=== PATIENT | female | born 1945 | race Caucasian/White ===

== ENCOUNTER 2020-12-27 11:33 | Outpatient (REF) | payer MEDICARE, SELFPAY ==
[2020-12-27 14:01] LABS: Hematocrit 39.9 % (37-47); Hemoglobin 13.4 g/dl (12.0-16.0); Mean Corpuscular HGB Conc 33.6 g/dl (31.0-35.0); Mean Corpuscular Hemoglobin 30.9 pg (27.0-33.0); Mean Corpuscular Volume 91.9 fL (80-98); Mean Platelet Volume 10.9 fL (9.4-12.3); Platelet Count 265 X10*3/uL (160-400); Red Blood Count 4.34 X10*6/uL (4.20-5.50); Red Cell Distribution Width 12.4 % (11.0-16.0); White Blood Count 9.2 X10*3/uL (4.8-10.8)
[2020-12-27 14:50] LABS: Alanine Aminotransferase 21 U/L (0-31); Albumin Level 4.6 g/dL (3.5-5.0); Alkaline Phosphatase 71 U/L (39-117); Anion Gap 15 (12-20); Aspartate Amino Transferase 16 U/L (5-31); Bilirubin Total 1.5 mg/dL (0.0-1.0); Blood Urea Nitrogen 21 mg/dL (9-16); Carbon Dioxide 26 mmol/L (22-29); Chloride 103 mmol/L (96-108); Cholesterol 201 mg/dL; Estimated Glomerular Filt Rate 58; Glucose Fasting 100 mg/dL (60-99); HDL Cholesterol 45 mg/dL; LDL Cholesterol Calculated 128 mg/dl; Potassium 4.3 mmol/L (3.3-5.1); Sodium 140 mmol/L (135-145); Total Protein 7.6 g/dL (6.5-8.0); Triglycerides 141 mg/dL
[2020-12-27 14:56] LABS: TSH reflex Free T4 2.31 uIU/mL (0.32-4.0)
== END 2020-12-27 11:34 | disposition home or self-care (01) ==
LOC: HO.HMGCLDS 11:33
PROVIDERS: PCP Internal Medicine; Visit Provider Internal Medicine
DX: E78.5 Hyperlipidemia, unspecified (principal); I10 Essential (primary) hypertension
CPT/HCPCS: 36415; 80053; 80061; 84443; 85027

== ENCOUNTER 2021-07-04 09:45 | Outpatient (REF) | payer MEDICARE, SELFPAY ==
[2021-07-04 12:04] LABS: Anion Gap 14 (12-20); Blood Urea Nitrogen 16 mg/dL (9-16); Calcium 9.5 mg/dL (8.4-10.2); Carbon Dioxide 25 mmol/L (22-29); Chloride 105 mmol/L (96-108); Estimated Glomerular Filt Rate 54; Glucose Fasting 105 mg/dL (60-99); Potassium 4.1 mmol/L (3.3-5.1); Sodium 140 mmol/L (135-145)
== END 2021-07-04 09:46 | disposition home or self-care (01) ==
LOC: HO.HMGCLDS 09:45
PROVIDERS: PCP Internal Medicine; Visit Provider Internal Medicine
DX: E78.5 Hyperlipidemia, unspecified (principal); I10 Essential (primary) hypertension
CPT/HCPCS: 36415; 80048

== ENCOUNTER 2021-07-15 12:59 | Inpatient (IN) | payer MEDICARE, SELFPAY ==
[2021-07-15] VITALS (15 sets, daily range): BP systolic 88–156; BP diastolic 60–106; PULSE 65–137; RESP 14–24; TEMP 36.8–36.9; O2SAT 94–96; BMI 32.1; BMI 32.8
--- NOTE | 2021-07-15 | ECG_ITS ---
Test Reason : RAPID HEART RATE Blood Pressure : / mmHG Vent. Rate : 134 BPM Atrial Rate : 134 BPM P-R Int : 120 ms QRS Dur : 126 ms QT Int : 346 ms P-R-T Axes : 000 -38 107 degrees QTc Int : 516 ms Sinus tachycardia Left anterior fascicular block Left ventricular hypertrophy with QRS widening and repolarization abnormality ( R in aVL , [place] product ) Abnormal ECG No previous ECGs available Referred By: Generic ED Physician Electronically Signed By:DOUG SILVER MD
--- NOTE | ~2021-07-15 | XR_ITS ---
EXAMINATION: XR CHEST CLINICAL INFORMATION: Supraventricular tachycardia. COMPARISON: None TECHNIQUE: Portable upright AP view of the chest was obtained. FINDINGS: The lungs are clear. The vascularity is normal. The heart is normal in size. There is no vascular congestion, airspace consolidation, or effusion. The hilar and mediastinal contours and visualized bony structures are unremarkable. XR/XR chest 1V IMPRESSION: Unremarkable examination.
--- NOTE | 2021-07-15 13:36 | ED_ITS ---
HPI - Arrhythmia/Palpitations General Chief Complaint: Arrhythmia/Palpitations Stated Complaint: heart arrhythmia Time Seen by Provider: 07/15/21 13:33 Source: patient and family Limitations: language barrier (Son translating) History of Present Illness HPI narrative: This is a 75-year-old female who has history of hypertension and has noted her heart rate has been fast for a few days, when she has been monitoring her blood pressure. She denies any other symptoms. She has not had any dizziness, chest pain, shortness of breath, abdominal pain. She has no prior history of arrhythmia or heart problems. She denies any swelling to her extremities. She denies any history of thyroid problems. Related Data Previous Rx's Medication Instructions Recorded irbesartan 300 mg tablet 300 mg PO DAILY #90 tab 08/12/20 metoprolol tartrate 25 mg tablet 25 mg PO BID #180 tab 08/12/20 triamterene 37.5 1 cap PO DAILY #90 cap 08/12/20 mg-hydrochlorothiazide 25 mg capsule Allergies Allergy/AdvReac Type Severity Reaction Status Date / Time No Known Allergies Allergy Verified 07/15/21 13:02 Review of Systems Review of Systems: Yes all other systems are reviewed and are negative Constitutional: Constitutional: Reports as per HPI Eyes: Eyes: Reports as per HPI and Reports no additional eye complaints ENT: Reports system reviewed and no additional complaints, except as documented, Reports as per HPI, Denies nasal congestion, Denies nasal discharge and Denies sore throat Cardiovascular: Cardiovascular: Reports as per HPI, Denies chest pain and Denies dyspnea Respiratory: Respiratory: Reports as per HPI, Denies cough and Denies dyspnea Gastrointestinal: Gastrointestinal: Reports as per HPI, Denies abdominal pain, Denies diarrhea and Denies vomiting Genitourinary: Genitourinary: Reports as per HPI, Denies hematuria, Denies urinary frequency and Denies dysuria Musculoskeletal: Musculoskeletal: Reports no additional musculoskeletal complaints and Denies numbness Integumentary/Breasts: Skin/Breast: Reports as per HPI and Denies rash Neurologic: Reports as per HPI, Denies focal weakness, Denies numbness and Denies Sensory deficit (Neuro) Psychiatric: Psychiatric: Reports no additional psychiatric complaints and Reports as per HPI Endocrine: Endocrine: Reports no additional endocrine complaints and Reports as per HPI Hematologic/Lymphatic: Hematologic/Lymphatic: Reports no additional hem atologic/lymphatic complaints, Reports as per HPI and Reports other (No peripheral edema) [facility] Past Medical History Medical History H/O bone density study Hyperlipidemia Hypertension Osteoarthritis of right knee Tachycardia Surgical History H/O colonoscopy Family History Family History (Updated 07/15/21 @ 16:01 by Kevin Eason MD) Other HTN (hypertension) Social History Social History Patient Tobacco Use Status: Never used Tobacco e-Cigarette/Vaping Use: Never Used Advance Directives: No Advance Directives Information Provided: No Current occupational status: retired Physical Exam Vital Signs: Vital Signs: Last Vital Signs Temp 98.2 F 07/15/21 13:02 Pulse 82 07/15/21 14:59 Resp 18 07/15/21 14:59 BP 109/80 07/15/21 14:59 Pulse Ox 94 07/15/21 14:40 Body Mass Index 32.1 Const: General: cooperative, no acute distress and alert Orientation/consciousness: patient oriented x3 HENMT: Head: Yes normal to inspection Eyes: General: appearance normal, both eyes and all related structures Eyelids: Yes eyelids normal Conjunctivae: conjunctivae normal Pupils: Equal, round and reactive pupils present Neck: Neck: Yes normal visual inspection and Yes supple Chest: Chest palpation & inspection: normal inspection of the chest Resp: Effort & Inspection: normal respiratory effort Auscultation: clear to auscultation bilaterally Cardio: Rate: tachycardic Rhythm: regular rhythm Heart sounds: S1 normal heart sound present, S2 normal heart sound present, no gallops, no murmurs and no rubs GI: Palpation (GI): Soft to palpation, nontender and Other GI palpation findings present (Non-distended) Auscultation: normal bowel sounds Skin: General skin exam: no rashes or lesions noted Neuro: General: patient oriented x3, no focal motor deficits and CN's II-XI intact bilaterally Cranial nerves: Yes Equal, round and reactive pupils present Cognition (Neuro): normal cognition Motor exam (neuro): 5/5 motor strength present throughout Sensory Exam: No Sensory deficit (Neuro) Extrem: General: Yes normal to inspection and Yes no pedal edema Psych: Appearance: grossly normal Affect: normal affect MDM - Arrhythmia/Palpitations MDM Narrative Medical decision making narrative: Patient presents with tachycardia noted 2 days ago. Patient denied any other symptoms such as chest pain, dizziness, shortness of breath, extremity swelling. Patient denied any history of cardiac disease. Initial EKG showed a supraventricular tachycardia with a rate of around 132, and it did not see to wake her from that rate. This suggested either SVT or atrial flutter. Patient was given adenosine IV, 6 mg which broke the rhythm briefly but did not allow the determination as to whether there was atrial flutter, and then 12 mg IV which did cause pause in the ventricular beats such that P waves could be seen consistent with atrial flutter. Patient was given Cardizem 20 mg IV bolus and then started on drip per protocol. The patient subsequently had a heart rate in the 70s and blood pressure that felt the 80s Cardizem was temporarily discontinued. Repeat EKG did show the patient was still in atrial flutter. This was a 15 10. Patient's troponin is somewhat elevated, likely due to sustained increased rate. Patient is being admitted to the hospitalist service, Dr. Danny oconnor. Second EKG done at 15:10 shows atrial flutter, with irregular conduction ratio suggesting a component of atrial fibrillation, overall rate of 89. No acute ST or T-wave changes noted compared to prior. Lab Data Attestation: I reviewed the patient's lab results. Result diagrams: 07/15/21 13:48 07/15/21 13:48 Labs: Lab Results 07/15/21 07/15/21 07/15/21 Range/Units 13:48 13:48 13:48 WBC 10.3 (4.8-10.8) X10*3/uL RBC 4.45 (4.20-5.50) X10*6/uL Hgb 13.7 (12.0-16.0) g/dl Hct 40.0 (37.0-47.0) % MCV 89.9 (80.0-98.0) fL MCH 30.8 (27.0-33.0) pg MCHC 34.3 (31.0-35.0) g/dl RDW 13.0 (11.0-16.0) % Plt Count 274 (160-400) X10*3/uL MPV 10.2 (9.4-12.3) fL Immature Gran % (Auto) 0.3 (0.0-0.4) % Neut % (Auto) 75.4 H (45-73) % Lymph % (Auto) 18.0 L (20-40) % Jenkins % (Auto) 4.9 (2-11) % Eos % (Auto) 1.2 (0-4) % Baso % (Auto) 0.2 (0-2) % Lymph # (Auto) 1.9 (1.2-4.9) X10*3/uL Jenkins # (Auto) 0.5 (0.1-1.2) X10*3/uL Eos # (Auto) 0.1 (0.0-0.4) X10*3/uL Baso # (Auto) 0.0 (0.0-0.2) X10*3/uL Abs Immat Gran (auto) 0.03 (0.00-0.03) X10*3/uL Absolute Neuts (auto) 7.8 (2.0-8.3) x10*3/uL Absolute Nucleated RBC 0.000 (0.0-0.012) X10*3/uL Nucleated RBC % (auto) 0.0 (0.0-0.2) /100WBC Sodium 136 (135-145) mmol/L Potassium 3.5 (3.3-5.1) mmol/L Chloride 103 (96-108) mmol/L Carbon Dioxide 21 L (22-29) mmol/L Anion Gap 16 (12-20) BUN 13 (9-16) mg/dL Creatinine 0.97 (0.5-1.4) mg/dL Estim Creat Clear Calc 47.8 Estimated GFR 56 Random Glucose 180 H (60-115) mg/dL Calcium 9.4 (8.4-10.2) mg/dL Total Bilirubin 1.8 H (0.0-1.0) mg/dL AST 20 (5-31) U/L ALT 23 (0-31) U/L Alkaline Phosphatase 60 (39-117) U/L Troponin I High Sens 110.1 H* (<3.5-17.0) ng/L Total Protein 7.2 (6.5-8.0) g/dL Albumin 4.2 (3.5-5.0) g/dL COVID-19 (KATHI) (Negative) COVID-19 Clin Com 07/15/21 Range/Units 14:43 WBC (4.8-10.8) X10*3/uL RBC (4.20-5.50) X10*6/uL Hgb (12.0-16.0) g/dl Hct (37.0-47.0) % MCV (80.0-98.0) fL MCH (27.0-33.0) pg MCHC (31.0-35.0) g/dl RDW (11.0-16.0) % Plt Count (160-400) X10*3/uL MPV (9.4-12.3) fL Immature Gran % (Auto) (0.0-0.4) % Neut % (Auto) (45-73) % Lymph % (Auto) (20-40) % Jenkins % (Auto) (2-11) % Eos % (Auto) (0-4) % Baso % (Auto) (0-2) % Lymph # (Auto) (1.2-4.9) X10*3/uL Jenkins # (Auto) (0.1-1.2) X10*3/uL Eos # (Auto) (0.0-0.4) X10*3/uL Baso # (Auto) (0.0-0.2) X10*3/uL Abs Immat Gran (auto) (0.00-0.03) X10*3/uL Absolute Neuts (auto) (2.0-8.3) x10*3/uL Absolute Nucleated RBC (0.0-0.012) X10*3/uL Nucleated RBC % (auto) (0.0-0.2) /100WBC Sodium (135-145) mmol/L Potassium (3.3-5.1) mmol/L Chloride (96-108) mmol/L Carbon Dioxide (22-29) mmol/L Anion Gap (12-20) BUN (9-16) mg/dL Creatinine (0.5-1.4) mg/dL Estim Creat Clear Calc Estimated GFR Random Glucose (60-115) mg/dL Calcium (8.4-10.2) mg/dL Total Bilirubin (0.0-1.0) mg/dL AST (5-31) U/L ALT (0-31) U/L Alkaline Phosphatase (39-117) U/L Troponin I High Sens (<3.5-17.0) ng/L Total Protein (6.5-8.0) g/dL Albumin (3.5-5.0) g/dL COVID-19 (KATHI) Negative (Negative) COVID-19 Clin Com See Note Imaging Data Chest x-ray: Radiologist's impression: No acute pathology ECG Data Attestation: I personally reviewed and interpreted this ECG as follows: ECG interpretation date: 07/15/21 ECG interpretation time: 13:39 Interpretation: Supraventricular tachycardia with a rate of 134. Poor R-wave progression. LVH with T-wave changes in leads 1 and L. Critical Care Time Critical Care Time Critical Care Time: Yes Total Critical Care Time: 40 Attestation: Critical care time for this life-threatening illness exclusive of all other billable procedures was approximately 40 minutes including initial evaluation of the patient, ordering tests, x-ray interpretation, EKG interpretation, medical consultation, documentation, reevaluation. Discharge Plan Discharge Clinical Impression: Atrial flutter with rapid ventricular response Patient Disposition: Admitted As Inpatient Prescriptions: No Action triamterene-hydrochlorothiazid 37.5-25 mg capsule 1 cap PO DAILY Qty: 90 RF: 3 metoprolol tartrate 25 mg tablet 25 mg PO BID Qty: 180 RF: 3 irbesartan 300 mg tablet 300 mg PO DAILY Qty: 90 RF: 3
[2021-07-15 13:52] LABS: MANUAL DIFF FLAG NO
--- NOTE | 2021-07-15 13:58 | PC.NURSE ---
pt given 6mg IV push adenosine, MD at bedside, on EKG. rhythm only broken for a few beat. 12 mg IV push adenosine given, HR slowed down to 66, enough for MD to identify aflutter. pt still on monitor. HR 130. other vitals stable.
[2021-07-15 13:59] LABS: Basophils Percent Auto 0.2 % (0-2); Eosinophils Absolute Auto 0.1 X10*3/uL (0.0-0.4); Eosinophils Percent Auto 1.2 % (0-4); Hemoglobin 13.7 g/dl (12.0-16.0); Imm Gran Abs Auto 0.03 X10*3/uL (0.00-0.03); Imm Gran Pct Auto 0.3 % (0.0-0.4); Lymphocytes Absolute Auto 1.9 X10*3/uL (1.2-4.9); Mean Corpuscular HGB Conc 34.3 g/dl (31.0-35.0); Mean Corpuscular Hemoglobin 30.8 pg (27.0-33.0); Mean Corpuscular Volume 89.9 fL (80.0-98.0); Mean Platelet Volume 10.2 fL (9.4-12.3); Monocytes Absolute Auto 0.5 X10*3/uL (0.1-1.2); Monocytes Percent Auto 4.9 % (2-11); Neutrophils Absolute Auto 7.8 x10*3/uL (2.0-8.3); Neutrophils Percent Auto 75.4 % (45-73); Platelet Count 274 X10*3/uL (160-400); Red Blood Count 4.45 X10*6/uL (4.20-5.50); White Blood Count 10.3 X10*3/uL (4.8-10.8)
[2021-07-15 14:14] LABS: Alanine Aminotransferase 23 U/L (0-31); Albumin Level 4.2 g/dL (3.5-5.0); Alkaline Phosphatase 60 U/L (39-117); Anion Gap 16 (12-20); Aspartate Amino Transferase 20 U/L (5-31); Bilirubin Total 1.8 mg/dL (0.0-1.0); Blood Urea Nitrogen 13 mg/dL (9-16); Calcium 9.4 mg/dL (8.4-10.2); Carbon Dioxide 21 mmol/L (22-29); Chloride 103 mmol/L (96-108); Creatinine Clr Calc Pharmacy 47.8; Estimated Glomerular Filt Rate 56; Glucose Random 180 mg/dL (60-115); Potassium 3.5 mmol/L (3.3-5.1); Sodium 136 mmol/L (135-145); Total Protein 7.2 g/dL (6.5-8.0)
[2021-07-15 14:24] LABS: Troponin-I High Sensitivity 110.1 ng/L (<3.5-17.0)
[2021-07-15] MEDS: dilTIAZem HCL 50 MG/10 ML VIAL 20 MG IVPUSH (14:27)
[2021-07-15] MEDS: dilTIAZem HCL 125 MG in 0.9 % Sodium Chloride 100 ML 10 MG IVCONT (14:37)
--- NOTE | 2021-07-15 14:50 | PC.NURSE ---
Ousmane philippe paused at this time, HR 65 and BP 88/60. Physician aware. Patient awake and alert. skin PWD, resp even and non labored. speaking in full, clear sentences.
--- NOTE | 2021-07-15 15:06 | ECG_ITS ---
Test Reason : REPEAT Blood Pressure : / mmHG Vent. Rate : 089 BPM Atrial Rate : 089 BPM P-R Int : 000 ms QRS Dur : 128 ms QT Int : 386 ms P-R-T Axes : 000 -42 110 degrees QTc Int : 469 ms Rhythm shows atrial flutter with variable block Left anterior fascicular block Intra-ventricular conduction delay Left ventricular hypertrophy with QRS widening and repolarization abnormality ( R in aVL , [place] product ) Abnormal ECG When compared with ECG of 15-JUL-2021 13:16, Rhythm shows atrial flutter with variable block has replaced Sinus tachycardia Referred By: Abel Barlow Electronically Signed By:DOUG SILVER MD
[2021-07-15 15:12] LABS: COVID-19 Test Negative (Negative)
--- NOTE | 2021-07-15 15:30 | CA_ITS ---
Transthoracic Echocardiogram Patient (Last, First, Middle): Steph Rowley, Gender: Female Date of : 1945 Age: 75 Procedure Date: 07/15/2021 Procedure Type: Transthoracic Echocardiogram Location: [facility] [place] Height: 160.02 cm Weight: 77.11 kg BSA: 1.80 m2 Heart Rate: 131 bpm BP: 109 / 70 mmHg Pie Icer Machine: Referring MD: Kevin Eason MD Symptoms: afib Study Quality: Good ECG Rhythm: Atrial Fibrillation Conclusions: - The left ventricular systolic function is severely decreased. The calculated ejection fraction is 26% by biplane method. - No obvious valvular pathology seen on this study. Findings Left Ventricle Normal left ventricular cavity size. There is mildly increased left ventricular wall thickness. The left ventricular systolic function is severely decreased. The calculated ejection fraction is 26% by biplane method. Diastolic function is indeterminate on the basis of available data. Right Ventricle Normal right ventricular cavity size. There is low normal right ventricular systolic function. TAPSE 1.6cm. Atria The left atrium is mildly dilated. The right atrium is normal in size. Aortic Valve There is a normal trileaflet aortic valve. There is no aortic valve stenosis. There is no aortic valve regurgitation. Mitral Valve The mitral valve appears normal. There is mild mitral annular calcification. There is trace mitral valve regurgitation. There is no mitral valve stenosis. Pulmonic Valve The pulmonic valve was not well visualized. Tricuspid Valve Normal tricuspid valve structure. There is mild tricuspid valve regurgitation. The pulmonary artery systolic pressure is normal. Great Vessels The aortic annulus, sinuses of valsalva, and asc aorta are normal in size. Venous The inferior vena cava is normal in size and collapses greater than 50% with inspiration. Pericardium/Pleural There is no evidence of pericardial effusion. Prior Study Comparison No prior study available for comparison. Recommendations, Care & Conclusions No obvious valvular pathology seen on this study. Measurements 2D Linear Measurements IVSd: 1.34 0.6-0.9/0.6-1.0 cm LVIDd: 3.51 3.9-5.3/4.2-5.9 cm LVIDd Index: 1.95 2.4-3.2/2.2-3.1 cm/m2 LVIDs: 2.93 2.0-3.6 cm LVPWd: 1.31 0.7-1.1 cm Ao Root: 3.20 2.1-3.5 cm LA Diam: 4.70 2.7-3.8/3.0-4.0 cm LAIDs Index: 2.61 1.5-2.3 cm/m2 LV Mass: 198.12 67-162/88-224 g LV Mass Index: 110.07 43-95/49-115 g/m2 LVOT Diam: 2.20 3.0+(-)1.3 cm 2D Systolic Function EF 4C: 38.50 >55% EF 2C: 19.00 >55% EF BiP: 25.60 >55% Mitral Valve MV Pk E: 0.87 MV Decel Time: 160.00 E'Lateral: 13.20 E'Medial: 8.38 E/E' Med: 10.40 E/E' Lat: 6.60 PHT: 47.00 MVA PHT: 4.68 Decel Simpson: 5.45 Aortic Valve AoV Pk [place]: 1.22 AoV Mn [place]: 0.76 AoV VTI: 0.16 AoV Pk Grad: 6.00 Aov Mn Grad: 3.00 TEMO Cont.VTI: 3.66 LVOT LVOT Pk [place]: 0.81 LVOT Mn [place]: 0.55 LVOT VTI: 0.16 LVOT Pk Grad: 3.00 LVOT Mn Grad: 1.00 LVOT Diam: 2.20 LVOT Area: 3.80 Diastolic Function MV Pk E: 0.87 E'Medial: 8.38 E/E' Med: 10.40 E' Laterial: 13.20 E/E' Lat: 6.60 Right Ventricle TAPSE (mm): 16.00 TVS' [place]: 11.00 Tricuspid Valve TR Pk [place]: 2.31 TR Pk Grad: 21.00 Great Vessels Aorta Ao Root-2D: 3.20 2.0-3.7 cm Ao Asc: 3.50 2.1-3.4 cm Pulmonary Valve PV Pk [place]: 0.81 Peak PV Grad: 3.00 Updated in Other Vendor System with Status of Final Juve Pop MD electronically signed on 07/16/2021 9:40:49 AM with status of Final
--- NOTE | 2021-07-15 15:51 | P.HPHOSP_ITS ---
History of Present Illness Date of Service: 07/15/21 Chief Complaint: Tachycardia 75 year old female with HTN who was checking her blood pressure routinely at home today and noted that the heart rate was very high. She did not experience any accompanied symptoms such shortness of breath, chest pain or palpiation and out of concern for the tachycardia came to the ED. She has noticed this the last several days. ECG showed afib with HR less than 90s. Review of Systems Review of Systems: Gen: no fever Resp: no sob, no cough, CV: no chest, no MEANS, no leg edema, no palpitation, no dizziness GI: No n/v, no abd pain Neuro: No confusion Yes all other systems are reviewed and are negative [facility] Medical History H/O bone density study Hyperlipidemia Hypertension Osteoarthritis of right knee Tachycardia Family History (Updated 07/15/21 @ 16:01 by Kevin Eason MD) Other HTN (hypertension) Pertinent family history: . Surgical History H/O colonoscopy Social History Patient Tobacco Use Status: Never used Tobacco e-Cigarette/Vaping Use: Never Used Advance Directives: No Advance Directives Information Provided: No Current occupational status: retired [employer] Allergies Allergy/AdvReac Type Severity Reaction Status Date / Time No Known Allergies Allergy Verified 07/15/21 13:02 Active Medications: Current Medications Diltiazem HCl 125 mg/ Sodium (Chloride) 125 mls @ 0 mls/hr IVCONT .Q0M [facility]; Protocol Last Admin: 07/15/21 14:37 Dose: 10 mg/hr, 10 mls/hr Documented by: Physical Exam Vital Signs and Narrative: Vital Signs: Last Vital Signs Temp 98.2 F 07/15/21 13:02 Pulse 82 07/15/21 14:59 Resp 18 07/15/21 14:59 BP 109/80 07/15/21 14:59 Pulse Ox 94 07/15/21 14:40 Body Mass Index 32.1 Const: Other: Constitutional: Alert, in no distress, overweight. Mental Status: Oriented to person, place and time. Eyes: Pupils are equal, round and reactive to light. Ear, Nose and Throat: Oropharynx clear, mucous membranes moist. Ears and nose w ithout eformities. Respiratory: Clear to auscultation. No wheezing, rales or rhonchi. Cardiovascular: S1 S2 irregular iregular. No murmurs, rubs or gallops. Gastrointestinal: Abdomen soft, non-tender, non-distended. Normal bowel sounds.? Neurologic: Cranial nerves II-XII grossly intact. No focal neurological deficits. Moves all extremities spontaneously.? Skin: No rashes or lesions.? Musculoskeletal: No cyanosis or clubbing. Psychiatric: Normal mood and affect? Results Labs CBC and Chem 7: 07/15/21 13:48 07/15/21 13:48 Labs: Laboratory Results - last 24 hr 07/15/21 07/15/21 07/15/21 13:48 13:48 13:48 MCV 89.9 MCH 30.8 MCHC 34.3 RDW 13.0 Plt Count 274 MPV 10.2 Immature Gran % (Auto) 0.3 Neut % (Auto) 75.4 H Lymph % (Auto) 18.0 L [place] % (Auto) 4.9 Eos % (Auto) 1.2 Baso % (Auto) 0.2 Lymph # (Auto) 1.9 [place] # (Auto) 0.5 Eos # (Auto) 0.1 Baso # (Auto) 0.0 Abs Immat Gran (auto) 0.03 Absolute Neuts (auto) 7.8 Absolute Nucleated RBC 0.000 Nucleated RBC % (auto) 0.0 Anion Gap 16 Estim Creat Clear Calc 47.8 Estimated GFR 56 Random Glucose 180 H Calcium 9.4 Total Bilirubin 1.8 H AST 20 ALT 23 Alkaline Phosphatase 60 Troponin I High Sens 110.1 H* Total Protein 7.2 Albumin 4.2 COVID-19 (KATHI) COVID-19 Clin Com 07/15/21 14:43 MCV MCH MCHC RDW Plt Count MPV Immature Gran % (Auto) Neut % (Auto) Lymph % (Auto) [place] % (Auto) Eos % (Auto) Baso % (Auto) Lymph # (Auto) [place] # (Auto) Eos # (Auto) Baso # (Auto) Abs Immat Gran (auto) Absolute Neuts (auto) Absolute Nucleated RBC Nucleated RBC % (auto) Anion Gap Estim Creat Clear Calc Estimated GFR Random Glucose Calcium Total Bilirubin AST ALT Alkaline Phosphatase Troponin I High Sens Total Protein Albumin COVID-19 (KATHI) Negative COVID-19 Clin Com See Note Imaging Radiologist's Impressions: Impressions Chest X-Ray 07/15/21 13:33 IMPRESSION: Unremarkable examination. Assessment and Plan (1) New onset a-fib: Status: Acute (2) Hypertension: Status: Acute (3) Hyperlipidemia: Status: Acute 75 year old femal with HTN, HLD with new onset AFIB, presently rate controlled. AFIB--get echo, continue Metoprolol (increase dose to 50), eliquis for stroke prevention, cardiology consult HTN--continue tiamteren/HCTZ, irbesartn, and metoprolol HLD--no med listed. Quality Stroke Does the patient have a stroke diagnosis?: No VTE Prior VTE?: No VTE Risk Level:: Medical - moderate - high VTE Device Contraindication: Treatment Not Tolerated VTE Drug Contraindication: N/A - Med Ordered
--- NOTE | 2021-07-15 16:25 | PC.NURSE ---
pt HR joselito to 130. Dilt drip started again at 5ml/hr.
[2021-07-15] MEDS: Apixaban 5 MG TABLET PO (16:28)
[2021-07-15] MEDS: Metoprolol Tartrate 25 MG TABLET PO (16:29)
[2021-07-15 17:40] LABS: Troponin-I High Sensitivity 111.5 ng/L (<3.5-17.0)
--- NOTE | 2021-07-15 18:57 | PC.NURSE ---
pts HR down to 80 bpm. dilt drip held at this time.
[2021-07-15] MEDS: dilTIAZem HCL 50 MG/10 ML VIAL 10 MG IVPUSH (22:09)
[2021-07-15] MEDS: Metoprolol Tartrate 5 MG/5 ML VIAL IVPUSH (23:46)
[2021-07-15] MEDS: 0.9 % Sodium Chloride Flush 3 ML SYRINGE IVFLUSH (23:48)
[2021-07-16] VITALS (13 sets, daily range): BP systolic 107–175; BP diastolic 73–93; PULSE 54–128; RESP 16–18; TEMP 36.3–37; O2SAT 94–97
[2021-07-16] MEDS: Metoprolol Tartrate 25 MG TABLET PO ×2 (00:09→09:08)
--- NOTE | 2021-07-16 05:43 | PC.NURSE ---
Patient arrived on unit with HR in the 130's in Afib, cardizem drip turned back on. Dr. Chandler notified and ordered 5mg IV metoprolol - med administered and shorly after patient's HR 60-80s and remained there most of the night. At 0540 patient's HR up to 120-130s while at rest. Cardizem drip turned back on.
[2021-07-16] MEDS: Apixaban 5 MG TABLET PO ×2 (05:57→16:50)
--- NOTE | 2021-07-16 08:30 | MHC.CM.PN ---
CM met at bedside with Patient with the assist of Occitan translation.Patient lives in a house with her and she had no services nor DME CLINICAL TRIAL ASSISTANT.Patient's goal is to return home/no services and CM has initiated and will follow for dc planning.ABAD addressed with Patient and the original has been given to her and a copy has been placed on the chart. Patient's Son/HCP/Raman lives next door and will transport to home.
--- NOTE | 2021-07-16 08:44 | MHC.CM.PN ---
Per RN CM, Patient has changed to INPATIENT. IMM addressed with Patient and original has been given to her and a copy has been placed on the chart.
--- NOTE | 2021-07-16 10:48 | P.CONCA_ITS ---
History of Present Illness History of Present Illness Date of Service: 07/16/21 Chief complaint: afib Narrative: This is a cardiology consultation regarding atrial flutter/fibrillation. Patient does not have any known cardiac problems. She denies any coronary disease or myocardial infarction or cardiomyopathy are intact nothing else cardiac cleared. She has hypertension on appropriate medications. Otherwise, it seems that couple days ago she felt her heart rate was too fast and generally did not feel well. This led to a primary care visit. Initially, it was felt to be sinus tachycardia but a subsequent visit the following day, she was referred to the ER for evaluation and found to be in atrial flutter/fibrillation with rapid rate. Today, she is anxious but otherwise feels well. No heart failure symptoms or any other concerns at this time. Fairly active at baseline. She has been commenced on anticoagulation and IV Cardizem. With regard to bleeding issues, epistaxis a few years back for which she apparently underwent cauterization but no other concerns. Review of Systems Review of Systems: Yes all other systems are reviewed and are negative Cardiovascular: Cardiovascular: Reports as per HPI, Reports no additional cardiovascular complaints, Denies acrocyanosis, Denies cool extremities, Denies painful fingertips, Denies chest pain, Denies chest pain at rest, Denies diaphoresis, Denies syncope, Denies irregular heart rhythm, Denies claudication, Denies leg edema, Denies lightheadedness, Reports palpitations and Denies dyspne a Respiratory: Respiratory: Denies dyspnea Neurologic: Denies syncope Endocrine: Endocrine: Reports palpitations PMFSH Past Medical History Medical History H/O bone density study Hyperlipidemia Hypertension Osteoarthritis of right knee Tachycardia Family History Family History (Updated 07/15/21 @ 16:01 by Kevin Eason MD) Other HTN (hypertension) Surgical History Surgical History H/O colonoscopy Social History Social History Patient Tobacco Use Status: Never used Tobacco e-Cigarette/Vaping Use: Never Used Advance Directives: No Advance Directives Information Provided: No service: No Current occupational status: retired Meds Allergies Allergy/AdvReac Type Severity Reaction Status Date / Time No Known Allergies Allergy Verified 07/15/21 13:02 Active Medications: Current Medications Apixaban (Apixaban 5 Mg Tablet) 5 mg PO Q12H [facility] Last Admin: 07/16/21 05:57 Dose: 5 mg Documented by: Diltiazem HCl 125 mg/ Sodium (Chloride) 125 mls @ 0 mls/hr IVCONT .Q0M [facility]; Protocol Last Titration: 07/16/21 10:28 Dose: Infused Documented by: Melatonin (Melatonin 3 Mg Tablet) 6 mg PO BEDTIME PRN PRN Reason: Insomnia Metoprolol Tartrate (Metoprolol Tartrate 25 Mg Tablet) 25 mg PO Q8H [facility]; Protocol Last Admin: 07/16/21 09:08 Dose: 25 mg Documented by: Ondansetron HCl (Ondansetron Hcl 4 Mg/2 Ml Vial) 4 mg IVPUSH Q8H PRN PRN Reason: Nausea and Vomiting Sodium Chloride (0.9 % Sodium Chloride Flush 3 Ml Syringe) 3 ml IVFLUSH QSHIFT [facility] Last Admin: 07/16/21 09:15 Dose: Not Given Documented by: Physical Exam Vital Signs: Vital Signs: Last Vital Signs Temp 97.4 F 07/16/21 07:53 Pulse 120 H 07/16/21 09:08 Resp 18 07/16/21 07:53 BP 127/87 07/16/21 09:08 Pulse Ox 96 07/16/21 07:53 Body Mass Index 32.8 Const: General: cooperative and no acute distress HENMT: Other: Unremarkable Neck: Neck: Yes normal visual inspection Chest: Chest palpation & inspection: normal inspection of the chest Resp: Auscultation: clear to auscultation bilaterally, no crackles and no wheezes Cardio: Jugular venous distension: no JVD Palpation: normal PMI Heart sounds: S1 normal heart sound present, S2 normal heart sound present, no gallops, no murmurs and no rubs GI: Palpation (GI): Soft to palpation Back/Spine/Pelvis: Other: unremarkable Skin: General skin exam: no rashes or lesions noted Neuro: Cranial nerves: Yes Other cranial nerve findings present Extrem: General: Yes no clubbing, cyanosis or edema Psych: Mental Status: other Objective Labs and Meds Result diagrams: 07/15/21 13:48 07/15/21 13:48 Lab results: Laboratory Results - last 24 hr 07/15/21 07/15/21 07/15/21 13:48 13:48 13:48 WBC 10.3 RBC 4.45 Hgb 13.7 Hct 40.0 MCV 89.9 MCH 30.8 MCHC 34.3 RDW 13.0 Plt Count 274 MPV 10.2 Immature Gran % (Auto) 0.3 Neut % (Auto) 75.4 H Lymph % (Auto) 18.0 L [place] % (Auto) 4.9 Eos % (Auto) 1.2 Baso % (Auto) 0.2 Lymph # (Auto) 1.9 [place] # (Auto) 0.5 Eos # (Auto) 0.1 Baso # (Auto) 0.0 Abs Immat Gran (auto) 0.03 Absolute Neuts (auto) 7.8 Absolute Nucleated RBC 0.000 Nucleated RBC % (auto) 0.0 Sodium 136 Potassium 3.5 Chloride 103 Carbon Dioxide 21 L Anion Gap 16 BUN 13 Creatinine 0.97 Estim Creat Clear Calc 47.8 Estimated GFR 56 Random Glucose 180 H Calcium 9.4 Total Bilirubin 1.8 H AST 20 ALT 23 Alkaline Phosphatase 60 Troponin I High Sens 110.1 H* Total Protein 7.2 Albumin 4.2 COVID-19 ([facility]) COVID-19 Clin Com 07/15/21 07/15/21 14:43 17:00 WBC RBC Hgb Hct MCV MCH MCHC RDW Plt Count MPV Immature Gran % (Auto) Neut % (Auto) Lymph % (Auto) [place] % (Auto) Eos % (Auto) Baso % (Auto) Lymph # (Auto) [place] # (Auto) Eos # (Auto) Baso # (Auto) Abs Immat Gran (auto) Absolute Neuts (auto) Absolute Nucleated RBC Nucleated RBC % (auto) Sodium Potassium Chloride Carbon Dioxide Anion Gap BUN Creatinine Estim Creat Clear Calc Estimated GFR Random Glucose Calcium Total Bilirubin AST ALT Alkaline Phosphatase Troponin I High Sens 111.5 H* Total Protein Albumin COVID-19 ([facility]) Negative COVID-19 Clin Com See Note ECG Interpretation: EKG yesterday with likely atrial flutter with controlled rate at 89/min. Currently she is likely in atrial flutter with rate of 120/min. In the initial EKG from presentation, atrial flutter at 134/Min. Imaging Radiologist's impression: Impressions Chest X-Ray 07/15/21 13:33 IMPRESSION: Unremarkable examination. Assessment and Plan (1) Atrial flutter with rapid ventricular response: Status: Acute (2) Cardiomyopathy: Status: Acute (3) Essential hypertension: Status: Acute Echocardiogram performed yesterday shows markedly diminished LVEF at about 26%. 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 Atrial flutter duration is uncertain. She was on Cardizem drip but we can switch her to beta blockers plus digoxin due to low EF. Will need to schedule her for ADELE/cardioversion for Sunday or Sunday, depending on availability. Otherwise, continue with anticoagulation with Eliquis. Troponin levels are elevated but flat. Could have coronary disease but suspect rather from tachycardia/demand. Will likely need ischemia workup as an outpatient as well. Discussed with son at the bedside. Procedures Date of Service Date of Service: 07/16/21
--- NOTE | 2021-07-16 11:40 | ECG_ITS ---
Test Reason : RHYTHM Blood Pressure : / mmHG Vent. Rate : 063 BPM Atrial Rate : 063 BPM P-R Int : 120 ms QRS Dur : 126 ms QT Int : 452 ms P-R-T Axes : 000 -35 109 degrees QTc Int : 462 ms Sinus rhythm with Premature atrial complexes Left anterior fascicular block Left ventricular hypertrophy with QRS widening and repolarization abnormality Abnormal ECG Normal sinus rhythm has replaced aflutter Referred By: Juve Pop Electronically Signed By:DOUG SILVER MD
[2021-07-16] MEDS: Metoprolol Tartrate 50 MG TABLET PO (11:50)
--- NOTE | 2021-07-16 11:50 | P.PNIM_ITS ---
Subjective Subjective Date of Service: 07/16/21 Interval History: f/u on afib with rvr, has converted to sinus rythm this morning Review of Systems no dizziness no palpiation no sob Physical Exam Vital Signs: Vital Signs: Last Vital Signs Temp 97.7 F 07/16/21 11:33 Pulse 63 07/16/21 11:33 Resp 18 07/16/21 11:33 BP 107/74 07/16/21 11:33 Pulse Ox 96 07/16/21 11:33 Body Mass Index 32.8 Const: Other: General: AO X 3, no acute distress Resp: CTA bilateral CVS: S1,S2, iregular at time of eval GI: +BS, NT, no distention Skin: No rash Neuro: motor grossly intact Psych: appropriate affect Objective Data Active Medications Apixaban (Apixaban 5 Mg Tablet) 5 mg PO Q12H [facility] Last Admin: 07/16/21 05:57 Dose: 5 mg Documented by: NATALI Melatonin (Melatonin 3 Mg Tablet) 6 mg PO BEDTIME PRN PRN Reason: Insomnia Metoprolol Tartrate (Metoprolol Tartrate 50 Mg Tablet) 50 mg PO Q6H [facility]; Protocol Ondansetron HCl (Ondansetron Hcl 4 Mg/2 Ml Vial) 4 mg IVPUSH Q8H PRN PRN Reason: Nausea and Vomiting Sodium Chloride (0.9 % Sodium Chloride Flush 3 Ml Syringe) 3 ml IVFLUSH QSHIFT [facility] Last Admin: 07/16/21 09:15 Dose: Not Given Documented by: JENIFER Non-Admin Reason: IV Running Labs CBC & Chem 7: 07/15/21 13:48 07/15/21 13:48 Labs: Laboratory Results - last 24 hr 07/15/21 07/15/21 07/15/21 13:48 13:48 13:48 MCV 89.9 MCH 30.8 MCHC 34.3 RDW 13.0 Plt Count 274 MPV 10.2 Immature Gran % (Auto) 0.3 Neut % (Auto) 75.4 H Lymph % (Auto) 18.0 L [place] % (Auto) 4.9 Eos % (Auto) 1.2 Baso % (Auto) 0.2 Lymph # (Auto) 1.9 [place] # (Auto) 0.5 Eos # (Auto) 0.1 Baso # (Auto) 0.0 Abs Immat Gran (auto) 0.03 Absolute Neuts (auto) 7.8 Absolute Nucleated RBC 0.000 Nucleated RBC % (auto) 0.0 Anion Gap 16 Estim Creat Clear Calc 47.8 Estimated GFR 56 Random Glucose 180 H Calcium 9.4 Total Bilirubin 1.8 H AST 20 ALT 23 Alkaline Phosphatase 60 Troponin I High Sens 110.1 H* Total Protein 7.2 Albumin 4.2 COVID-19 ([facility]) COVID-19 Clin Com 07/15/21 07/15/21 14:43 17:00 MCV MCH MCHC RDW Plt Count MPV Immature Gran % (Auto) Neut % (Auto) Lymph % (Auto) [place] % (Auto) Eos % (Auto) Baso % (Auto) Lymph # (Auto) [place] # (Auto) Eos # (Auto) Baso # (Auto) Abs Immat Gran (auto) Absolute Neuts (auto) Absolute Nucleated RBC Nucleated RBC % (auto) Anion Gap Estim Creat Clear Calc Estimated GFR Random Glucose Calcium Total Bilirubin AST ALT Alkaline Phosphatase Troponin I High Sens 111.5 H* Total Protein Albumin COVID-19 ([facility]) Negative COVID-19 Clin Com See Note Assessment and Plan (1) Essential hypertension: Status: Acute (2) Cardiomyopathy: Status: Acute (3) Atrial flutter with rapid ventricular response: Status: Acute Assessment and Plan: ?75 year old femal with HTN, HLD with new onset AFIB, and found to have cardiomyopathy with severely reduced EF AFIB--has converted to sinus, confirmed with ECG -continue Metoprolol and digoxin -Eliquis for stroke prevention Cardiomyopathy with severely reduced EF of 25%, possibly tachycardia mediated -will probably need ischemia work up on outpatient basis HTN--continue tiamteren/HCTZ, irbesartn, and metoprolol HLD--no? med listed, check lipids tomorrow Quality Stroke Does the patient have a stroke diagnosis?: No VTE Prior VTE?: No VTE Risk Level:: Medical - moderate - high VTE Device Contraindication: Treatment Not Tolerated VTE Drug Contraindication: N/A - Med Ordered
[2021-07-16] MEDS: Amiodarone HCL 200 MG TABLET 400 MG PO ×2 (13:18→22:33)
[2021-07-16] MEDS: 0.9 % Sodium Chloride Flush 3 ML SYRINGE IVFLUSH ×2 (16:54→22:52)
[2021-07-17 03:09] VITALS: BP 151/70; PULSE 65; RESP 18; TEMP 36.7; O2SAT 95
[2021-07-17] MEDS: Apixaban 5 MG TABLET PO (05:12)
[2021-07-17 07:47] VITALS: BP 140/75; PULSE 65; RESP 18; TEMP 36.4; O2SAT 96
[2021-07-17 08:47] VITALS: BP 140/75; PULSE 65
[2021-07-17] MEDS: Metoprolol Succinate ER 50 MG TAB.ER.24H PO (08:47)
[2021-07-17] MEDS: Amiodarone HCL 200 MG TABLET 400 MG PO (08:47)
[2021-07-17] MEDS: 0.9 % Sodium Chloride Flush 3 ML SYRINGE IVFLUSH (08:48)
--- NOTE | 2021-07-17 11:18 | P.PNCA_ITS ---
Subjective Subjective Date of Service: 07/17/21 Interval history: No new complaints. Feels well. Review of Systems Review of Systems Yes all other systems are reviewed and are negative Cardiovascular: Reports as per HPI, Reports no additional cardiovascular complaints, Denies acrocyanosis, Denies cool extremities, Denies painful fingertips, Denies chest pain, Denies chest pain at rest, Denies diaphoresis, Denies syncope, Denies irregular heart rhythm, Denies claudication, Denies leg edema, Denies lightheadedness, Reports palpitations and Denies dyspnea Respiratory: Denies dyspnea Denies syncope Endocrine: Reports palpitations Physical Exam Vital Signs: Last Vital Signs Temp 97.5 F 07/17/21 07:47 Pulse 65 07/17/21 08:47 Resp 18 07/17/21 07:47 BP 140/75 H 07/17/21 08:47 Pulse Ox 96 07/17/21 07:47 Body Mass Index 32.8 Const General: cooperative and no acute distress HENMS Other: Unremarkable Neck Neck: Yes normal visual inspection Chest Chest palpation & inspection: normal inspection of the chest Resp Auscultation: clear to auscultation bilaterally, no crackles and no wheezes Cardio Jugular venous distension: no JVD Palpation: normal PMI Heart sounds: S1 normal heart sound present, S2 normal heart sound present, no gallops, no murmurs and no rubs GI Palpation (GI): Soft to palpation Back/Spine/Pelvis Other: unremarkable Skin General skin exam: no rashes or lesions noted Neuro Cranial nerves: Yes Other cranial nerve findings present Extrem General: Yes no clubbing, cyanosis or edema Psych Mental Status: other Objective Labs and Meds Result diagrams: 07/15/21 13:48 07/15/21 13:48 Progress Note: A&P Assessment and plan (1) Atrial flutter with rapid ventricular response: Status: Acute (2) Cardiomyopathy: Status: Acute (3) Essential hypertension: Status: Acute Assessment and Plan: Echocardiogram shows markedly diminished LVEF at about 26%. 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 Atrial flutter duration is uncertain. Yesterday she converted to sinus rhythm. Continue Amiodarone, Toprol, Eliquis. Resume Irbesartan. Troponin levels are elevated but flat. Could have coronary disease but suspect rather from tachycardia/demand. Will likely need ischemia workup as an outpatient as well. FU will be arranged. Fall Risk Details Current Medications: Current Medications Amiodarone HCl (Amiodarone Hcl 200 Mg Tablet) 400 mg PO BID [facility] Last Admin: 07/17/21 08:47 Dose: 400 mg Documented by: Apixaban (Apixaban 5 Mg Tablet) 5 mg PO Q12H [facility] Last Admin: 07/17/21 05:12 Dose: 5 mg Documented by: Melatonin (Melatonin 3 Mg Tablet) 6 mg PO BEDTIME PRN PRN Reason: Insomnia Metoprolol Succinate (Metoprolol Succinate Er 50 Mg Tab.Er.24h) 50 mg PO DAILY [facility]; Protocol Last Admin: 07/17/21 08:47 Dose: 50 mg Documented by: Ondansetron HCl (Ondansetron Hcl 4 Mg/2 Ml Vial) 4 mg IVPUSH Q8H PRN PRN Reason: Nausea and Vomiting Sodium Chloride (0.9 % Sodium Chloride Flush 3 Ml Syringe) 3 ml IVFLUSH QSHIFT [facility] Last Admin: 07/17/21 08:48 Dose: 3 ml Documented by: Time Spent With Patient Time: Total time spent is greater than 50% in coordination of care (as d ocumented) at patient's floor/unit and/or counseling patient: Time with patient: less than 15 minutes Progress Note: Quality Stroke Does the patient have a stroke diagnosis?: No Procedures Date of Service Date of Service: 07/17/21
--- NOTE | 2021-07-17 11:19 | PM.DS ---
DS: Providers Provider Date of Service: 07/17/21 Date of admission: 07/15/21 16:12 Primary care physician: Dalila Foreman MD Consults: 07/15/21 16:06 Consult to Cardiology Routine Consulting Provider: Juve Pop Reason for consultation: afib DS: Diagnosis Discharge Diagnosis (1) Essential hypertension: Status: Acute (2) Cardiomyopathy: Status: Acute (3) Atrial flutter with rapid ventricular response: Status: Acute DS: Summary Hospital Course Hospital Course: Chief Complaint: Tachycardia 75 year old female with HTN who was checking her blood pressure routinely at home today and noted that? the heart rate was very high. She did not experience any accompanied symptoms such shortness of breath, chest pain? or palpiation and out of concern for the tachycardia came to the ED. She has noticed this the last several days. ECG showed afib with HR less than 90s. Hospital course: She presented with tachycardia and found to have AFIB with RVR HR up to 130s, she noted this on blood pressure machine at home for several days and related no additional symptoms with this. She was initiated on IV cardizem, and later converted to sinus rythm and was then started on amiodarone. Echocardiogram Echocardiogram shows markedly diminished LVEF at about 25%. She remains in sinus rythm and will likely need further ischemic work up on outpatient basis. She will continue BP medication of Metoprolol but will change to Xl 50 mg daily, to continue Irbesartan 300 mg daily and to discontinue Triamterene-HCTZ. She feels comfortable with the plan to go home and to follow up with cardiology--Dr. Pop Time Spent with Patient Time attestation: Total time spent providing and/or coordinating discharge services: Discharge coordination time: Greater than 30 minutes Quality: Stroke Does the patient have a stroke diagnosis?: No Physical Exam Vital Signs: Vital Signs: Last Vital Signs Temp 97.5 F 07/17/21 07:47 Pulse 65 07/17/21 08:47 Resp 18 07/17/21 07:47 BP 140/75 H 07/17/21 08:47 Pulse Ox 96 07/17/21 07:47 Body Mass Index 32.8 Discharge Plan Discharge Anticipated Discharge Date/Time: 07/17/21 11:14 Patient Disposition: Home, Self-Care Discharge Diagnosis: New atrial fibrilation Referrals: Dalila Foreman MD [Primary Care Provider] - 1 Week Discharge Medications: New metoprolol succinate 50 mg Tablet Extended Release 24 Hr 50 mg PO DAILY Qty: 30 RF: 0 amiodarone 200 mg Tablet See Rx Instructions .ROUTE .COMPLEX Qty: 90 RF: 0 Continued irbesartan 300 mg tablet 300 mg PO DAILY Qty: 90 RF: 3 Discontinued triamterene-hydrochlorothiazid 37.5-25 mg capsule 1 cap PO DAILY Qty: 90 RF: 3 metoprolol tartrate 25 mg tablet 25 mg PO BID Qty: 180 RF: 3 Discharge Orders: Discharge Order (Routine); Ordered 07/17/21 Ordered By: Kevin Eason Diet: advance to usual diet Activity on Discharge: As tolerated Stand Alone Forms: Patient Portal Discharge page Care Plan Goals: Control of atrial fibrilation and stroke prevention Health Concerns: New atrial fibrilation Plan of Treatment: Take Metoprolol Xl 50 mg daily (and stop previous dose of 25 twice daily) and Amiodarone as recommended to control heart rate and Eliquis to thin your blood and prevent stroke Continue taking Irbesartan for blood pressure Stop takeing Triameterene-Hydrochlorothiazide Follow up with Dr. Pop Assessment: as above
--- NOTE | 2021-07-17 11:36 | MHC.CM.PN ---
PT CLEARED TO DC HOME TODAY WITH NO SERVICES SON TO TRANSPORT
== END 2021-07-17 12:45 | disposition home or self-care (01) | DRG 310 ==
LOC: HO.ED 16:05 → HO.EDOVER 07-16 08:44 → HO.IMC 07-16 08:44
PROVIDERS: Admitting Provider Internal Medicine; Emergency Provider Emergency Medicine; PCP Internal Medicine; Visit Provider Internal Medicine
DX: I48.91 Unspecified atrial fibrillation (principal); I42.9 Cardiomyopathy, unspecified; I10 Essential (primary) hypertension; E78.5 Hyperlipidemia, unspecified; Z20.822 Contact with and (suspected) exposure to COVID-19; Z79.01 Long term (current) use of anticoagulants; Z79.899 Other long term (current) drug therapy
CPT/HCPCS: 36415; 71045; 80053; 84484; 85025; 87635; 93005; 93306; 96365; 96375; 99285; 99291; J0153

== ENCOUNTER → 2021-07-26 14:29 | Outpatient (BNVA) | payer MEDICARE, SELFPAY | PROVIDERS: PCP Internal Medicine; Referring Provider Internal Medicine; Visit Provider Nurse Practitioner Family | DX: I48.92 Unspecified atrial flutter (principal); I42.9 Cardiomyopathy, unspecified; I10 Essential (primary) hypertension | CPT/HCPCS: 93005; 99212 ==

== ENCOUNTER → 2021-08-11 10:59 | Outpatient (REF) | payer MEDICARE, SELFPAY ==
--- NOTE | 2021-08-11 11:02 | HM_ITS ---
Total monitoring time 3 days. Underlying rhythm is sinus. Minimum heart rate 35/Min. Maximum 82/Min. Average 51/Min. About 45% of the time, rate less than 60/Min. No atrial fibrillation or flutter or AV blocks or pauses. Rare supraventricular ectopy with minimal burden; 2 very short runs, longest 5 beats. Rare ventricular ectopy with minimal burden. No sustained arrhythmias. No patient events. MTDD
== END ==
LOC: HO.CARD 10:59
PROVIDERS: PCP Internal Medicine; Visit Provider Nurse Practitioner Family
DX: I48.92 Unspecified atrial flutter (principal)
CPT/HCPCS: 93242

== ENCOUNTER 2021-08-16 13:39 | Outpatient (REF) | payer MEDICARE, SELFPAY ==
[2021-08-16 16:53] LABS: Anion Gap 15 (12-20); Blood Urea Nitrogen 12 mg/dL (9-16); Carbon Dioxide 28 mmol/L (22-29); Chloride 101 mmol/L (96-108); Estimated Glomerular Filt Rate 47; Glucose Random 92 mg/dL (60-115); Potassium 3.9 mmol/L (3.3-5.1); Sodium 140 mmol/L (135-145)
[2021-08-16 16:57] LABS: B Type Natriuretic Peptide 26 pg/mL (<100)
== END 2021-08-16 13:40 | disposition home or self-care (01) ==
LOC: HO.HMGCLDS 13:39
PROVIDERS: PCP Internal Medicine; Visit Provider Internal Medicine
DX: I10 Essential (primary) hypertension (principal); I42.9 Cardiomyopathy, unspecified; I48.92 Unspecified atrial flutter
CPT/HCPCS: 36415; 80048; 83880

== ENCOUNTER → 2021-09-15 09:33 | Outpatient (REF) | payer MEDICARE, SELFPAY ==
--- NOTE | ~2021-09-15 | NM_ITS ---
Lexiscan Myocardial perfusion study Indication: Atrial flutter, cardiomyopathy, assess for coronary disease and ischemia Technique: The patient was brought in for a Lexiscan perfusion study on 09/15/2020 and was injected 0.4 mg of Lexiscan intravenously. Within a minute of this injection 25 mCi of sestamibi was given intravenously. Images were obtained using the SPECT gamma camera interlaced with the gating device. Images were obtained in supine position. Resting perfusion study was performed on 09/16/2020. Patient was administered 25 mCi of sestamibi intravenously at rest. Images were then obtained in supine position. Total DLP 94mGy-cm. Images were processed with the software and compared side to side in short axis, horizontal long axis and vertical long axis views. Findings: Raw acquisition reviewed. The stress perfusion study showed diminished tracer uptake in the distal part of anterior septum, adjacent anterior wall, lateral wall. There is also diminished uptake in the basal inferolateral wall. With CT attenuation, basal inferolateral defect claims to improves slightly but otherwise no significant changes. The gated study shows normal LV systolic function with calculated LVEF of 66%. LV cavity is normal in size. The gated study shows normal wall thickening and contraction of segments. Resting study shows diminished uptake in the basal inferolateral wall similar to stress acquisition. [place] seems unremarkable in the uncorrected images but with diminished uptake in the apical septum and inferolateral wall during CT attenuation correction. Gating at rest reveals normal wall motion with ejection fraction at 59%. The findings are consistent with apical anteroseptal/anterior/lateral defect with reversible/fixed components. Fixed basal inferolateral defect. NM/NM sukhwinder perf SPECT rest & str Impression: 1. Myocardial perfusion imaging study shows apical anteroseptal, anterior, lateral defect with reversible and fixed components which could indicate ischemia/infarct pattern; fixed defect in the basal inferolateral wall, which could indicate prior infarct. 2. Gated LVEF is 64% during stress and 59% during rest. Correlate with echocardiogram. 3. Transient ischemic dilatation not present. EKG component of the test reported separately.
--- NOTE | 2021-09-15 09:37 | CA_ITS ---
Acquisition Time: 2021-09-15 10:50:52 Total Exercise Time: 00:02:00 Test Indications: CARDIOMYOPATHY Medications: SEE CHART Protocol: LEXISCAN Max HR: 100 BPM 68% of Pred: 145 BPM Max BP: 150/080 mmHG Max Work Load: 1.0 METS Pharmacological stress test with Lexiscan injection, while sitting and kicking her legs, without anginal symptoms, with isolated PACs and PVCs, with normotensive response to injection, without EKG changes meeting criteria for ischemia. Nuclear images pending. Test reviewed with Dr Pop. Referred By: Shanika Sanchez Overread By: SHANIKA SANCHEZ
== END ==
LOC: HO.CARD 09:33
PROVIDERS: Visit Provider Nurse Practitioner Family
DX: I48.92 Unspecified atrial flutter (principal); I42.9 Cardiomyopathy, unspecified
CPT/HCPCS: 78452; 93017; A9500; J0280; J2785

== ENCOUNTER → 2021-09-16 09:24 | Outpatient (REF) | payer MEDICARE, SELFPAY ==
--- NOTE | 2021-09-16 09:27 | CA_ITS ---
Transthoracic Echocardiogram Patient (Last, First, Middle): Steph Rowley, Gender: Female Date of : 1945 Age: 76 Procedure Date: 09/16/2021 Procedure Type: Transthoracic Echocardiogram Location: OP Height: 160.02 cm Weight: 77.11 kg BSA: 1.80 m2 Heart Rate: bpm BP: 122 / 66 mmHg Degreaser Operator: REGINALDO Referring MD: Shanika Sanchez PANTOGRAPH MACHINE OPERATOR-C Symptoms: I42.9 - Cardiomyopathy, unspecified Study Quality: Fair ECG Rhythm: Sinus Conclusions: - The left ventricular systolic function is mildly decreased. The visually estimated ejection fraction is between 40-45%. The calculated ejection fraction is 45% by biplane method. - The apical inferior and apical septum segments are akinetic. Findings Procedure Information Contrast agent, definity, is being given per protocol without apparent complications. Left Ventricle Normal left ventricular cavity size. There is mildly increased left ventricular wall thickness. The left ventricular systolic function is mildly decreased. The visually estimated ejection fraction is between 40-45%. The calculated ejection fraction is 45% by biplane method. Wall Motion Rest Echo Findings The apical inferior and apical septum segments are akinetic. Right Ventricle Normal right ventricular cavity size and systolic function. Venous The inferior vena cava is normal in size and collapses greater than 50% with inspiration. Prior Study Comparison Changes noted compared to prior study dated: 07/15/2021. Improved LVEF. See comments on wall motion. Measurements 2D Linear Measurements IVSd: 1.35 0.6-0.9/0.6-1.0 cm LVIDd: 4.88 3.9-5.3/4.2-5.9 cm LVIDd Index: 2.71 2.4-3.2/2.2-3.1 cm/m2 LVIDs: 3.62 2.0-3.6 cm LVPWd: 1.24 0.7-1.1 cm Ao Root: 3.70 2.1-3.5 cm LV Mass: 312.64 67-162/88-224 g LV Mass Index: 173.69 43-95/49-115 g/m2 LVOT Diam: 2.30 3.0+(-)1.3 cm 2D Systolic Function EF 4C: 45.20 >55% EF 2C: 46.10 >55% EF BiP: 44.50 >55% Mitral Valve MV Pk E: 0.90 MV PK A: 0.71 MV Decel Time: 301.00 E/A: 1.30 E'Lateral: 5.66 E'Medial: 5.00 E/E' Med: 17.90 E/E' Lat: 15.80 PHT: 88.00 MVA PHT: 2.50 Decel [place]: 2.97 LVOT LVOT Diam: 2.30 LVOT Area: 4.15 Diastolic Function MV Pk E: 0.90 MV Pk A: 0.71 E/A: 1.30 E'Medial: 5.00 E/E' Med: 17.90 E' Laterial: 5.66 E/E' Lat: 15.80 Great Vessels Aorta Ao Root-2D: 3.70 2.0-3.7 cm Ao Asc: 3.40 2.1-3.4 cm Updated in Other Vendor System with Status of Final Juve Pop MD electronically signed on 09/18/2021 12:36:32 PM with status of Final
== END ==
LOC: HO.CARD 09:24
PROVIDERS: Visit Provider Nurse Practitioner Family
DX: I42.9 Cardiomyopathy, unspecified (principal)
CPT/HCPCS: 93308; Q9957

== ENCOUNTER → 2021-10-10 09:53 | Outpatient (BNVA) | payer MEDICARE, SELFPAY | PROVIDERS: PCP Internal Medicine; Referring Provider Internal Medicine; Visit Provider Internal Medicine | DX: I48.3 Typical atrial flutter (principal); I42.8 Other cardiomyopathies; I10 Essential (primary) hypertension | CPT/HCPCS: 99212 ==

== ENCOUNTER 2021-10-14 08:27 | Outpatient (REF) | payer MEDICARE, SELFPAY ==
[2021-10-14 09:13] LABS: INTERNATIONAL NORM RATIO 1.1 (0.9-1.1); Prothrombin Time 12.9 SEC (9.9-13.0)
[2021-10-14 09:19] LABS: Hematocrit 38.2 % (37.0-47.0); Hemoglobin 12.9 g/dl (12.0-16.0); Mean Corpuscular HGB Conc 33.8 g/dl (31.0-35.0); Mean Corpuscular Hemoglobin 30.9 pg (27.0-33.0); Mean Corpuscular Volume 91.4 fL (80.0-98.0); Mean Platelet Volume 10.2 fL (9.4-12.3); Platelet Count 264 X10*3/uL (160-400); Red Blood Count 4.18 X10*6/uL (4.20-5.50); Red Cell Distribution Width 13.1 % (11.0-16.0); White Blood Count 7.2 X10*3/uL (4.8-10.8)
[2021-10-14 09:33] LABS: Alanine Aminotransferase 16 U/L (0-31); Albumin Level 4.3 g/dL (3.5-5.0); Alkaline Phosphatase 59 U/L (39-117); Anion Gap 13 (12-20); Aspartate Amino Transferase 17 U/L (5-31); Bilirubin Direct 0.5 mg/dL (0.0-0.5); Bilirubin Total 1.6 mg/dL (0.0-1.0); Blood Urea Nitrogen 12 mg/dL (9-16); Calcium 9.7 mg/dL (8.4-10.2); Carbon Dioxide 28 mmol/L (22-29); Chloride 103 mmol/L (96-108); Cholesterol 228 mg/dL; Estimated Glomerular Filt Rate > 60; Glucose Fasting 107 mg/dL (60-99); HDL Cholesterol 46 mg/dL; LDL Cholesterol Calculated 151 mg/dl; Sodium 140 mmol/L (135-145); Total Protein 7.3 g/dL (6.5-8.0); Triglycerides 155 mg/dL
[2021-10-14 09:56] LABS: TSH reflex Free T4 9.42 uIU/mL (0.32-4.0)
[2021-10-14 09:57] LABS: TSH reflex Free T4 8.04 uIU/mL (0.32-4.0)
[2021-10-14 10:46] LABS: Free T4 (Free Thyroxine) 0.81 ng/dL (0.71-1.85)
== END 2021-10-14 08:28 | disposition home or self-care (01) ==
LOC: HO.LAB 08:27
PROVIDERS: Nurse Practitioner Family; PCP Internal Medicine; Visit Provider Internal Medicine
DX: I42.8 Other cardiomyopathies (principal); I48.92 Unspecified atrial flutter; I10 Essential (primary) hypertension
CPT/HCPCS: 36415; 80048; 80053; 80061; 80076; 84439; 84443; 85027; 85610

== ENCOUNTER → 2021-11-01 14:01 | Outpatient (BNVA) | payer MEDICARE, SELFPAY | PROVIDERS: PCP Internal Medicine; Referring Provider Internal Medicine; Visit Provider Internal Medicine | DX: I48.3 Typical atrial flutter (principal); I42.8 Other cardiomyopathies; I10 Essential (primary) hypertension; E78.5 Hyperlipidemia, unspecified | CPT/HCPCS: 99212 ==

== ENCOUNTER 2021-11-30 08:55 | Outpatient (REF) | payer MEDICARE, SELFPAY ==
[2021-11-30 13:01] LABS: TSH reflex Free T4 9.86 uIU/mL (0.32-4.0)
[2021-11-30 13:40] LABS: Alanine Aminotransferase 20 U/L (0-31); Albumin Level 4.6 g/dL (3.5-5.0); Alkaline Phosphatase 67 U/L (39-117); Anion Gap 15 (12-20); Aspartate Amino Transferase 18 U/L (5-31); Bilirubin Total 1.5 mg/dL (0.0-1.0); Blood Urea Nitrogen 12 mg/dL (9-16); Carbon Dioxide 28 mmol/L (22-29); Chloride 103 mmol/L (96-108); Cholesterol 205 mg/dL; Estimated Glomerular Filt Rate 57; Glucose Fasting 117 mg/dL (60-99); HDL Cholesterol 52 mg/dL; LDL Cholesterol Calculated 106 mg/dl; Potassium 4.3 mmol/L (3.3-5.1); Sodium 142 mmol/L (135-145); Total Protein 7.8 g/dL (6.5-8.0); Triglycerides 239 mg/dL
[2021-11-30 14:05] LABS: Free T4 (Free Thyroxine) 0.85 ng/dL (0.71-1.85)
== END 2021-11-30 08:56 | disposition home or self-care (01) ==
LOC: HO.HMGCLDS 08:55
PROVIDERS: PCP Internal Medicine; Visit Provider Internal Medicine
DX: I10 Essential (primary) hypertension (principal); I42.9 Cardiomyopathy, unspecified; I48.0 Paroxysmal atrial fibrillation
CPT/HCPCS: 36415; 80053; 80061; 84439; 84443

== ENCOUNTER → 2022-02-07 15:07 | Outpatient (BNVA) | payer MEDICARE, SELFPAY | PROVIDERS: PCP Internal Medicine; Referring Provider Internal Medicine; Visit Provider Internal Medicine | DX: I48.3 Typical atrial flutter (principal); I42.8 Other cardiomyopathies; I10 Essential (primary) hypertension; E78.5 Hyperlipidemia, unspecified | CPT/HCPCS: 99212 ==

== ENCOUNTER 2022-02-13 10:04 | Outpatient (REF) | payer MEDICARE, SELFPAY ==
[2022-02-13 13:18] LABS: Alanine Aminotransferase 17 U/L (0-31); Albumin Level 4.4 g/dL (3.5-5.0); Alkaline Phosphatase 63 U/L (39-117); Anion Gap 14 (12-20); Aspartate Amino Transferase 17 U/L (5-31); Bilirubin Total 1.5 mg/dL (0.0-1.0); Blood Urea Nitrogen 12 mg/dL (9-16); Calcium 9.4 mg/dL (8.4-10.2); Carbon Dioxide 26 mmol/L (22-29); Chloride 103 mmol/L (96-108); Cholesterol 211 mg/dL; Estimated Average Glucose 117 mg/dL; Estimated Glomerular Filt Rate > 60; Glucose Fasting 106 mg/dL (60-99); HDL Cholesterol 49 mg/dL; Hemoglobin A1c % 5.7 %; LDL Cholesterol Calculated 137 mg/dl; Sodium 139 mmol/L (135-145); Total Protein 7.4 g/dL (6.5-8.0); Triglycerides 125 mg/dL
[2022-02-13 13:25] LABS: TSH reflex Free T4 2.22 uIU/mL (0.32-4.0)
== END 2022-02-13 10:05 | disposition home or self-care (01) ==
LOC: HO.HMGCLDS 10:04
PROVIDERS: Visit Provider Internal Medicine
DX: I10 Essential (primary) hypertension (principal); I42.8 Other cardiomyopathies; R73.9 Hyperglycemia, unspecified; E03.9 Hypothyroidism, unspecified
CPT/HCPCS: 36415; 80053; 80061; 83036; 84443

== ENCOUNTER 2022-07-10 11:43 | Outpatient (REF) | payer MEDICARE, SELFPAY ==
[2022-07-10 14:01] LABS: MANUAL DIFF FLAG NO
[2022-07-10 14:04] LABS: Basophils Absolute Auto 0.1 X10*3/uL (0.0-0.2); Basophils Percent Auto 0.5 % (0-2); Eosinophils Absolute Auto 0.3 X10*3/uL (0.0-0.4); Eosinophils Percent Auto 2.8 % (0-4); Hemoglobin 13.2 g/dl (12.0-16.0); Imm Gran Abs Auto 0.03 X10*3/uL (0.00-0.03); Imm Gran Pct Auto 0.3 % (0.0-0.4); Lymphocytes Absolute Auto 1.9 X10*3/uL (1.2-4.9); Lymphocytes Percent Auto 21.1 % (20-40); Mean Corpuscular HGB Conc 33.8 g/dl (31.0-35.0); Mean Corpuscular Hemoglobin 30.1 pg (27.0-33.0); Mean Corpuscular Volume 88.8 fL (80.0-98.0); Mean Platelet Volume 10.8 fL (9.4-12.3); Monocytes Absolute Auto 0.8 X10*3/uL (0.1-1.2); Monocytes Percent Auto 8.5 % (2-11); Neutrophils Absolute Auto 6.1 x10*3/uL (2.0-8.3); Neutrophils Percent Auto 66.8 % (45-73); Platelet Count 284 X10*3/uL (160-400); Red Blood Count 4.39 X10*6/uL (4.20-5.50); Red Cell Distribution Width 12.5 % (11.0-16.0); White Blood Count 9.2 X10*3/uL (4.8-10.8)
[2022-07-10 14:19] LABS: Estimated Average Glucose 120 mg/dL; Hemoglobin A1c % 5.8 %
[2022-07-10 14:24] LABS: Alanine Aminotransferase 23 U/L (0-31); Anion Gap 18 (12-20); Aspartate Amino Transferase 19 U/L (5-31); Bilirubin Total 1.7 mg/dL (0.0-1.0); Blood Urea Nitrogen 12 mg/dL (9-16); Calcium 9.7 mg/dL (8.4-10.2); Carbon Dioxide 24 mmol/L (22-29); Chloride 101 mmol/L (96-108); Estimated Glomerular Filt Rate > 60; Glucose Fasting 103 mg/dL (60-99); Sodium 139 mmol/L (135-145); Total Protein 7.6 g/dL (6.5-8.0)
[2022-07-10 14:25] LABS: Albumin Level 4.6 g/dL (3.5-5.0); Alkaline Phosphatase 67 U/L (39-117); Cholesterol 215 mg/dL; HDL Cholesterol 49 mg/dL; LDL Cholesterol Calculated 140 mg/dl; Triglycerides 133 mg/dL
[2022-07-10 14:44] LABS: TSH reflex Free T4 1.48 uIU/mL (0.32-4.0)
== END 2022-07-10 11:44 | disposition home or self-care (01) ==
LOC: HO.HMGCLDS 11:43
PROVIDERS: PCP Internal Medicine; Visit Provider Internal Medicine
DX: E03.9 Hypothyroidism, unspecified (principal); I10 Essential (primary) hypertension; I48.0 Paroxysmal atrial fibrillation
CPT/HCPCS: 36415; 80053; 80061; 83036; 84443; 85025

== ENCOUNTER → 2022-07-31 15:59 | Outpatient (REF) | payer MEDICARE, SELFPAY ==
--- NOTE | 2022-07-31 16:02 | CA_ITS ---
Transthoracic Echocardiogram Patient (Last, First, Middle): Steph Hughes, Gender: Female Date of : 1945 Age: 76 Procedure Date: 07/31/2022 Procedure Type: Transthoracic Echocardiogram Location: OP Height: 154.94 cm Weight: 77.11 kg BSA: 1.76 m2 Heart Rate: bpm BP: 130 / 85 mmHg Insurance Claims Assistant: DIANA Referring MD: Juve Pop MD Symptoms: I42.8 - Other cardiomyopathies Study Quality: Adequate ECG Rhythm: Sinus Conclusions: - The left ventricular systolic function is normal. The visually estimated ejection fraction is between 55-60%. - Evidence suggests grade II (moderate) diastolic dysfunction. - There is mild mitral annular calcification. - There is mild calcification of the aortic valve. Findings Left Ventricle Normal left ventricular cavity size. The left ventricular systolic function is normal. The visually estimated ejection fraction is between 55-60%. E/E prime ratio is >15, consistent with elevated filling pressures. Evidence suggests grade II (moderate) diastolic dysfunction. There is mild septal and mild basal asymmetric hypertrophy. LV peak GLS -14.9%. No overt wall motion abnormalities but apex difficult to visualize. Right Ventricle Normal right ventricular cavity size and systolic function. Atria The left atrium is mildly dilated. The right atrium is normal in size. Aortic Valve There is a normal trileaflet aortic valve. There is mild calcification of the aortic valve. There is no aortic valve stenosis. There is no aortic valve regurgitation. Mitral Valve There is mild mitral annular calcification. There is no mitral valve regurgitation. There is no mitral valve stenosis. Pulmonic Valve The pulmonic valve is likely normal. Tricuspid Valve There is trace tricuspid valve regurgitation. There is no evidence of pulmonary hypertension. Great Vessels The asc aorta is normal in size. Venous The inferior vena cava is normal in size and collapses greater than 50% with inspiration. Pericardium/Pleural There is no evidence of pericardial effusion. Prior Study Comparison Changes noted compared to prior study dated: 09/16/2021. LVEF improved. Wall motion abnormalities not clearly seen. Measurements 2D Linear Measurements IVSd: 1.22 0.6-0.9/0.6-1.0 cm LVIDd: 4.94 3.9-5.3/4.2-5.9 cm LVIDd Index: 2.81 2.4-3.2/2.2-3.1 cm/m2 LVIDs: 3.68 2.0-3.6 cm LVPWd: 0.96 0.7-1.1 cm LA Diam: 4.00 2.7-3.8/3.0-4.0 cm LAIDs Index: 2.27 1.5-2.3 cm/m2 LV Mass: 249.53 67-162/88-224 g LV Mass Index: 141.78 43-95/49-115 g/m2 LVOT Diam: 2.20 3.0+(-)1.3 cm 2D Systolic Function EF 4C: 64.60 >55% EF 2C: 57.20 >55% EF BiP: 60.00 >55% Mitral Valve MV Pk E: 0.87 MV PK A: 0.65 MV Decel Time: 225.00 E/A: 1.30 E'Lateral: 7.18 E'Medial: 3.59 E/E' Med: 24.10 E/E' Lat: 12.00 PHT: 66.00 MVA PHT: 3.33 Decel [place]: 3.85 Aortic Valve AoV Pk [place]: 1.81 AoV Mn [place]: 1.18 AoV VTI: 0.42 AoV Pk Grad: 13.00 Aov Mn Grad: 6.00 TEMO Cont.VTI: 2.12 LVOT LVOT Pk [place]: 0.95 LVOT Mn [place]: 0.65 LVOT VTI: 0.24 LVOT Pk Grad: 4.00 LVOT Mn Grad: 2.00 LVOT Diam: 2.20 LVOT Area: 3.80 Diastolic Function MV Pk E: 0.87 MV Pk A: 0.65 E/A: 1.30 E'Medial: 3.59 E/E' Med: 24.10 E' Laterial: 7.18 E/E' Lat: 12.00 Right Ventricle TAPSE (mm): 19.50 TVS' [place]: 9.36 Tricuspid Valve TR Pk [place]: 2.31 TR Pk Grad: 21.00 RA Press: 3.00 RVSP: 24.00 Great Vessels Aorta Sinus of Valsalva: 3.03 2.0-3.[address] [place]: 2.24 1.7-3.4 cm Ao Asc: 3.50 2.1-3.4 cm Updated in Other Vendor System with Status of Final Juve Pop MD electronically signed on 08/01/2022 11:46:09 AM with status of Final
== END ==
LOC: HO.CARD 15:59
PROVIDERS: Visit Provider Internal Medicine
DX: I42.8 Other cardiomyopathies (principal)
CPT/HCPCS: 93306; 93356

== ENCOUNTER → 2022-09-18 15:03 | Outpatient (BNVA) | payer MEDICARE, SELFPAY | PROVIDERS: PCP Internal Medicine; Referring Provider Internal Medicine; Visit Provider Internal Medicine | DX: I48.92 Unspecified atrial flutter (principal); I42.9 Cardiomyopathy, unspecified; I10 Essential (primary) hypertension; Z79.899 Other long term (current) drug therapy | CPT/HCPCS: 93005; 99212 ==

== ENCOUNTER 2023-01-05 08:32 | Outpatient (REF) | payer MEDICARE, SELFPAY ==
[2023-01-05 11:25] LABS: MANUAL DIFF FLAG NO
[2023-01-05 11:42] LABS: Basophils Absolute Auto 0.1 X10*3/uL (0.0-0.2); Basophils Percent Auto 0.6 % (0-2); Eosinophils Absolute Auto 0.2 X10*3/uL (0.0-0.4); Eosinophils Percent Auto 2.5 % (0-4); Hematocrit 38.5 % (37.0-47.0); Hemoglobin 12.9 g/dl (12.0-16.0); Imm Gran Abs Auto 0.05 X10*3/uL (0.00-0.03); Imm Gran Pct Auto 0.6 % (0.0-0.4); Lymphocytes Absolute Auto 1.9 X10*3/uL (1.2-4.9); Lymphocytes Percent Auto 21.4 % (20-40); Mean Corpuscular HGB Conc 33.5 g/dl (31.0-35.0); Mean Corpuscular Hemoglobin 30.5 pg (27.0-33.0); Mean Platelet Volume 10.6 fL (9.4-12.3); Monocytes Absolute Auto 0.7 X10*3/uL (0.1-1.2); Monocytes Percent Auto 8.4 % (2-11); Neutrophils Absolute Auto 5.8 x10*3/uL (2.0-8.3); Neutrophils Percent Auto 66.5 % (45-73); Platelet Count 253 X10*3/uL (160-400); Red Blood Count 4.23 X10*6/uL (4.20-5.50); Red Cell Distribution Width 12.5 % (11.0-16.0); White Blood Count 8.7 X10*3/uL (4.8-10.8)
[2023-01-05 11:53] LABS: Estimated Average Glucose 123 mg/dL; Hemoglobin A1c % 5.9 %
[2023-01-05 12:07] LABS: Alanine Aminotransferase 21 U/L (0-31); Albumin Level 4.6 g/dL (3.5-5.0); Alkaline Phosphatase 70 U/L (39-117); Anion Gap 12 (12-20); Aspartate Amino Transferase 21 U/L (5-31); Bilirubin Total 2.1 mg/dL (0.0-1.0); Blood Urea Nitrogen 13 mg/dL (9-16); Calcium 9.9 mg/dL (8.4-10.2); Carbon Dioxide 29 mmol/L (22-29); Chloride 103 mmol/L (96-108); Cholesterol 116 mg/dL; Estimated Glomerular Filt Rate > 60; Glucose Fasting 119 mg/dL (60-99); HDL Cholesterol 46 mg/dL; LDL Cholesterol Calculated 51 mg/dl; Potassium 4.3 mmol/L (3.3-5.1); Sodium 140 mmol/L (135-145); Total Protein 7.4 g/dL (6.5-8.0); Triglycerides 99 mg/dL
[2023-01-05 13:25] LABS: Free T4 (Free Thyroxine) 0.99 ng/dL (0.71-1.85)
== END 2023-01-05 08:33 | disposition home or self-care (01) ==
LOC: HO.HMGCLDS 08:32
PROVIDERS: PCP Internal Medicine; Visit Provider Internal Medicine
DX: E03.9 Hypothyroidism, unspecified (principal); I10 Essential (primary) hypertension; I48.0 Paroxysmal atrial fibrillation; R73.9 Hyperglycemia, unspecified
CPT/HCPCS: 36415; 80053; 80061; 83036; 84439; 84443; 85025

== ENCOUNTER 2023-03-15 10:52 | Outpatient (REF) | payer MEDICARE, SELFPAY ==
[2023-03-15 13:14] LABS: MANUAL DIFF FLAG NO
[2023-03-15 13:37] LABS: Basophils Absolute Auto 0.1 X10*3/uL (0.0-0.2); Basophils Percent Auto 0.5 % (0-2); Eosinophils Absolute Auto 0.3 X10*3/uL (0.0-0.4); Eosinophils Percent Auto 2.8 % (0-4); Hematocrit 36.6 % (37.0-47.0); Hemoglobin 12.2 g/dl (12.0-16.0); Imm Gran Abs Auto 0.03 X10*3/uL (0.00-0.03); Imm Gran Pct Auto 0.3 % (0.0-0.4); Lymphocytes Absolute Auto 2.1 X10*3/uL (1.2-4.9); Lymphocytes Percent Auto 19.7 % (20-40); Mean Corpuscular HGB Conc 33.3 g/dl (31.0-35.0); Mean Corpuscular Hemoglobin 30.1 pg (27.0-33.0); Mean Corpuscular Volume 90.4 fL (80.0-98.0); Mean Platelet Volume 10.9 fL (9.4-12.3); Monocytes Percent Auto 9.5 % (2-11); Neutrophils Absolute Auto 7.1 x10*3/uL (2.0-8.3); Neutrophils Percent Auto 67.2 % (45-73); Platelet Count 272 X10*3/uL (160-400); Red Blood Count 4.05 X10*6/uL (4.20-5.50); Red Cell Distribution Width 12.2 % (11.0-16.0); White Blood Count 10.6 X10*3/uL (4.8-10.8)
[2023-03-15 13:43] LABS: Estimated Average Glucose 117 mg/dL; Hemoglobin A1c % 5.7 %
[2023-03-15 13:56] LABS: Alanine Aminotransferase 20 U/L (0-31); Albumin Level 4.4 g/dL (3.5-5.0); Alkaline Phosphatase 65 U/L (39-117); Anion Gap 15 (12-20); Aspartate Amino Transferase 21 U/L (5-31); Bilirubin Total 2.3 mg/dL (0.0-1.0); Blood Urea Nitrogen 14 mg/dL (9-16); Calcium 10.6 mg/dL (8.4-10.2); Carbon Dioxide 27 mmol/L (22-29); Chloride 103 mmol/L (96-108); Cholesterol 120 mg/dL; Estimated Glomerular Filt Rate > 60; Glucose Fasting 106 mg/dL (60-99); HDL Cholesterol 44 mg/dL; LDL Cholesterol Calculated 52 mg/dl; Potassium 3.8 mmol/L (3.3-5.1); Sodium 141 mmol/L (135-145); Total Protein 7.6 g/dL (6.5-8.0); Triglycerides 122 mg/dL
[2023-03-15 14:16] LABS: TSH reflex Free T4 0.89 uIU/mL (0.32-4.0)
== END 2023-03-15 10:53 | disposition home or self-care (01) ==
LOC: HO.HMGCLDS 10:52
PROVIDERS: PCP Internal Medicine; Visit Provider Internal Medicine
DX: E03.9 Hypothyroidism, unspecified (principal); R73.9 Hyperglycemia, unspecified; E78.5 Hyperlipidemia, unspecified
CPT/HCPCS: 36415; 80053; 80061; 83036; 84443; 85025

== ENCOUNTER 2023-07-13 07:40 | Outpatient (REF) | payer MEDICARE, SELFPAY ==
[2023-07-13 11:22] LABS: MANUAL DIFF FLAG NO
[2023-07-13 11:44] LABS: Basophils Absolute Auto 0.1 X10*3/uL (0.0-0.2); Basophils Percent Auto 0.5 % (0-2); Eosinophils Absolute Auto 0.3 X10*3/uL (0.0-0.4); Eosinophils Percent Auto 2.6 % (0-4); Hemoglobin 13.2 g/dl (12.0-16.0); Imm Gran Abs Auto 0.05 X10*3/uL (0.00-0.03); Imm Gran Pct Auto 0.5 % (0.0-0.4); Lymphocytes Absolute Auto 1.9 X10*3/uL (1.2-4.9); Lymphocytes Percent Auto 19.8 % (20-40); Mean Corpuscular Hemoglobin 29.5 pg (27.0-33.0); Mean Corpuscular Volume 89.5 fL (80.0-98.0); Mean Platelet Volume 10.5 fL (9.4-12.3); Monocytes Absolute Auto 0.7 X10*3/uL (0.1-1.2); Monocytes Percent Auto 7.4 % (2-11); Neutrophils Absolute Auto 6.6 x10*3/uL (2.0-8.3); Neutrophils Percent Auto 69.2 % (45-73); Platelet Count 243 X10*3/uL (160-400); Red Blood Count 4.47 X10*6/uL (4.20-5.50); Red Cell Distribution Width 13.1 % (11.0-16.0); White Blood Count 9.5 X10*3/uL (4.8-10.8)
[2023-07-13 11:58] LABS: Estimated Average Glucose 123 mg/dL; Hemoglobin A1c % 5.9 % (<6.0)
[2023-07-13 12:31] LABS: Alanine Aminotransferase 21 U/L (0-31); Albumin Level 4.5 g/dL (3.5-5.0); Alkaline Phosphatase 70 U/L (39-117); Anion Gap 13 (12-20); Aspartate Amino Transferase 24 U/L (5-31); Blood Urea Nitrogen 16 mg/dL (9-16); Calcium 9.7 mg/dL (8.4-10.2); Carbon Dioxide 28 mmol/L (22-29); Chloride 104 mmol/L (96-108); Cholesterol 127 mg/dL (<200); Estimated Glomerular Filt Rate > 60; Glucose Fasting 122 mg/dL (60-99); HDL Cholesterol 46 mg/dL (>40); Iron 105 mcg/dL (30-160); LDL Cholesterol Calculated 55 mg/dL (<100); Percent Iron Saturation 31 % (15-50); Potassium 4.1 mmol/L (3.3-5.1); Sodium 141 mmol/L (135-145); TSH reflex Free T4 2.75 uIU/mL (0.32-4.0); Total Iron Binding Capacity 339 mcg/dL (228-428); Total Protein 7.9 g/dL (6.5-8.0); Triglycerides 133 mg/dL (<150); Unsaturated Iron Binding 234 ug/dL
== END 2023-07-13 07:41 | disposition home or self-care (01) ==
LOC: HO.HMGCLDS 07:40
PROVIDERS: PCP Internal Medicine; Visit Provider Internal Medicine
DX: R73.9 Hyperglycemia, unspecified (principal); E03.9 Hypothyroidism, unspecified; I10 Essential (primary) hypertension; I48.0 Paroxysmal atrial fibrillation; E78.5 Hyperlipidemia, unspecified
CPT/HCPCS: 36415; 80053; 80061; 83036; 83540; 84443; 85025

== ENCOUNTER 2023-07-17 08:22 | Outpatient (AMB) | payer MEDICARE, SELFPAY ==
--- NOTE | 2023-07-17 08:27 | A.OFFPC_ITS ---
Vital Signs 07/17/23 08:29 Height 5 ft 2 in Weight 172 lb BMI 31.5 BP 130/70 Blood Pressure Location Rt brachial Position Sitting Pulse 73 Pulse Source Pulse Oximeter Pulse Oximetry (%) 95 Oxygen Delivery Method Room Air Intake Visit Reasons: Annual Physical Allergies No Known Allergies Allergy (Verified 01/10/23 08:49) Medication List - Last Reconciled 07/17/23 by Dalila Foreman MD amlodipine 10 mg PO DAILY apixaban (Eliquis) 5 mg PO BID irbesartan 300 mg PO DAILY levothyroxine 50 mcg PO DAILY metoprolol succinate ER 25 mg PO DAILY rosuvastatin 20 mg PO DAILY triamterene-hydrochlorothiazid 37.5-25 mg 1 tab PO DAILY Tobacco use date assessed: 01/10/23 HPI Annual Physical HPI Details Pt presents for PE. PFSH Medical History Hyperglycemia Hypothyroidism Atrial flutter Essential hypertension Cardiomyopathy Tachycardia Hyperlipidemia Osteoarthritis of right knee Hypertension H/O bone density study Surgical History H/O colonoscopy Family History Mother HTN (hypertension) Stroke Social History Housing: House Patient Tobacco Use Status: Never used Tobacco e-Cigarette/Vaping Use: Never Used service: No Current occupational status: retired Cognitive needs: No Hearing needs: No Vision needs: Yes Questionnaire Thrive Questionnaire Date Thrive assessed: 01/10/23 OLGA LIDIA-7 AMB Questionnaire OLGA LIDIA-7 Date OLGA LIDIA - 7 assessed: 01/10/23 Source: Developed by Drs. Fred Soto, Prisca Freedman, Rufino Matos and colleagues, with an educational darius from [employer] Review of Systems Const All systems reviewed & are unremarkable except as noted in HPI and below Reports no additional complaints Eyes Reports no additional complaints ENT Reports no additional complaints Card Reports no additional complaints Resp Reports no additional complaints GI Reports no additional complaints Reports no additional complaints Physical exam (Primary Care) Vital Signs: Last Vital Signs Pulse 73 07/17/23 08:29 BP 130/70 07/17/23 08:29 Pulse Ox 95 07/17/23 08:29 Oxygen Delivery Method Room Air 07/17/23 08:29 BMI result Body Mass Index 31.5 Tobacco/Smoking Status: Tobacco use Status Tobacco use date assessed 01/10/23 07/17/23 08:28 Patient Tobacco Use Status Never used Tobacco 07/17/23 08:28 e-Cigarette/Vaping Use Never Used 07/17/23 08:28 Thrive Assessment: Date of Thrive Assessment Date Thrive assessed 01/10/23 07/17/23 08:28 Const General: no acute distress HENMT Head: Yes normal to inspection Ears: hearing grossly normal bilaterally General nose exam: Normal external nose present Face and sinus: Yes normal facial exam Mouth: Normal oral and palatal mucosa present Throat: Yes posterior oropharynx normal Eyes General: appearance normal, both eyes and all related structures Neck Neck: Yes no lymphadenopathy and Yes supple Resp Effort & Inspection: normal respiratory effort Auscultation: clear to auscultation bilaterally Cardio Rhythm: regular rhythm Heart sounds: S1 normal heart sound present and S2 normal heart sound present GI Inspection: Yes normal to inspection Palpation (GI): Soft to palpation Percussion: Yes normal to percussion Auscultation: normal bowel sounds Assessment and Plan Assessment & Plan (1) Hyperlipidemia: Code(s): E78.5 - Hyperlipidemia, unspecified Plan: Continue Crestor (2) Hyperglycemia: Code(s): R73.9 - Hyperglycemia, unspecified Plan: A1c is 5.9, continue ADA diet increase physical activity and weight loss discussed (3) Hypothyroidism: Code(s): E03.9 - Hypothyroidism, unspecified Plan: Continue levothyroxine (4) Essential hypertension: Code(s): I10 - Essential (primary) hypertension Plan: Continue current medications (5) PAF (paroxysmal atrial fibrillation): Code(s): I48.0 - Paroxysmal atrial fibrillation Plan: Continue Eliquis (6) Cardiomyopathy: Comment: tachycardia induced 2020, recovered EF to 60 % on Echo 07/25, nl coronary angiogram 2020 Code(s): I42.9 - Cardiomyopathy, unspecified Qualifiers: Cardiomyopathy type: other Qualified Code(s): I42.8 - Other cardiomyopathies Plan: Continue medications and follow-up with Cardiology (7) Hypertension: Code(s): I10 - Essential (primary) hypertension Orders: Orders Complete Blood Count Auto Diff 6 Months E03.9 - Hypothyroidism, unspecified, E78.5 - Hyperlipidemia, unspecified, I10 - Essential (primary) hypertension, I42.9 - Cardiomyopathy, unspecified, I48.0 - Paroxysmal atrial fibrillation, R73.9 - Hyperglycemia, unspecified Lipid Panel 6 Months E03.9 - Hypothyroidism, unspecified, E78.5 - Hyperlipidemia, unspecified, I10 - Essential (primary) hypertension, I42.9 - Cardiomyopathy, unspecified, I48.0 - Paroxysmal atrial fibrillation, R73.9 - Hyperglycemia, unspecified Hemoglobin A1c 6 Months E03.9 - Hypothyroidism, unspecified, E78.5 - Hyperlipidemia, unspecified, I10 - Essential (primary) hypertension, I42.9 - Cardiomyopathy, unspecified, I48.0 - Paroxysmal atrial fibrillation, R73.9 - Hyperglycemia, unspecified Microalbumin, Random (w Creat) 6 Months E03.9 - Hypothyroidism, unspecified, E78.5 - Hyperlipidemia, unspecified, I10 - Essential (primary) hypertension, I42.9 - Cardiomyopathy, unspecified, I48.0 - Paroxysmal atrial fibrillation, R73.9 - Hyperglycemia, unspecified Comprehensive [employer]. Panel Fast 6 Months E03.9 - Hypothyroidism, unspecified, E78.5 - Hyperlipidemia, unspecified, I10 - Essential (primary) hypertension, I42.9 - Cardiomyopathy, unspecified, I48.0 - Paroxysmal atrial fibrillation, R73.9 - Hyperglycemia, unspecified TSH reflex Free T4 6 Months E03.9 - Hypothyroidism, unspecified, E78.5 - Hyperlipidemia, unspecified, I10 - Essential (primary) hypertension, I42.9 - Cardiomyopathy, unspecified, I48.0 - Paroxysmal atrial fibrillation, R73.9 - Hyperglycemia, unspecified Coding Level of Care Code Est Pt Prev Care >65y(27721) Diagnoses Hyperlipidemia E78.5 Hyperglycemia R73.9 Hypothyroidism E03.9 Essential hypertension I10 PAF (paroxysmal atrial fibrillation) I48.0 Other cardiomyopathy I42.8 Cardiomyopathy type: other Hypertension I10
[2023-07-17 08:29] VITALS: BP 130/70; PULSE 73; O2SAT 95; BMI 31.5
== END 2023-07-17 09:31 | disposition home or self-care (01) ==
PROVIDERS: Visit Provider Internal Medicine
DX: Z00.00 Encounter for general adult medical examination without abnormal findings (principal); I48.0 Paroxysmal atrial fibrillation; I42.8 Other cardiomyopathies; E78.5 Hyperlipidemia, unspecified; R73.9 Hyperglycemia, unspecified; E03.9 Hypothyroidism, unspecified; I10 Essential (primary) hypertension
CPT/HCPCS: 99397

== ENCOUNTER 2023-09-17 14:52 | Outpatient (AMB) | payer MEDICARE, SELFPAY ==
--- NOTE | 2023-09-17 15:00 | MHC.OFFVIS ---
Intake Vital Signs 09/17/23 15:02 Height 5 ft 2 in Weight 172 lb 6.424 oz BMI 31.5 BP 114/62 Blood Pressure Location Lt brachial Position Sitting Pulse 73 Intake Visit Reasons: 1Y follow up Intake Note: 1 year follow up w. EKG Accompanied by: Son Allergies No Known Allergies Allergy (Verified 09/17/23 15:09) Medication List - Last Reconciled 09/17/23 by Juve Pop MD amlodipine 10 mg PO DAILY apixaban (Eliquis) 5 mg PO BID irbesartan 300 mg PO DAILY levothyroxine 50 mcg PO DAILY metoprolol succinate ER 25 mg PO DAILY rosuvastatin 20 mg PO DAILY triamterene-hydrochlorothiazid 37.5-25 mg 1 tab PO DAILY HPI HPI Comments History of Present Illness Details Steph returns for follow-up. In 2020, she was seen in the hospital regarding atrial flutter with rapid rate. Spontaneously converted to sinus rhythm. Echocardiogram had shown markedly diminished LVEF. Briefly on amiodarone but then stopped. She remains on beta-blockers. Overall, no specific cardiac complaints. No angina or shortness of breath or palpitations or in fact anything cardiac sounding. [facility] Medical History Hyperglycemia Hypothyroidism Atrial flutter Essential hypertension Cardiomyopathy Tachycardia Hyperlipidemia Osteoarthritis of right knee Hypertension H/O bone density study Surgical History H/O colonoscopy Family History Mother HTN (hypertension) Stroke Social History Housing: House Patient Tobacco Use Status: Never used Tobacco e-Cigarette/Vaping Use: Never Used service: No Current occupational status: retired Cognitive needs: No Hearing needs: No Vision needs: Yes Review of Systems Const All systems reviewed & are unremarkable except as noted in HPI and below Reports as per HPI and Reports no additional complaints Eyes Reports as per HPI and Denies no additional complaints ENT Denies no additional complaints and Reports as per HPI Card Reports as per HPI, Reports no additional complaints, Denies acrocyanosis, Denies chest pain, Denies leg edema, Denies lightheadedness, Denies palpitations and Denies dyspnea Resp Reports as per HPI, Denies no additional complaints and Denies dyspnea GI Reports as per HPI and Denies no additional complaints Reports as per HPI Musc Reports no additional complaints and Reports as per [facility] Skin/Breast Reports system reviewed and no additional complaints, except as documented Neuro Reports no additional complaints and Reports as per HPI Psych Reports no additional complaints and Reports as per HPI Endo Reports no additional complaints, Reports as per HPI and Denies palpitations Hernando/Lymph Reports no additional complaints and Reports as per HPI Aller/Immun Reports no additional complaints and Reports as per HPI Physical Exam Vital Signs: Last Vital Signs Pulse 73 09/17/23 15:02 BP 114/62 09/17/23 15:02 BMI result Body Mass Index 31.5 Const General: comfortable and no acute distress Orientation/consciousness: patient oriented x3 HEENT Other: Unremarkable Head: Yes normal to inspection Neck Neck: Yes normal visual inspection Chest Chest palpation & inspection: normal inspection of the chest Resp Auscultation: clear to auscultation bilaterally Cardio Palpation: normal PMI Heart sounds: S1 normal heart sound present, S2 normal heart sound present, no gallops, no murmurs and no rubs GI Palpation (GI): Soft to palpation Back/Spine/Pelvis Other: unremarkable Skin General skin exam: no rashes or lesions noted Neuro General: patient oriented x3 Extrem General: Yes normal to inspection Psych Mental Status: mental status grossly normal Office Procedures EKG Details: EKG with sinus rhythm with frequent premature atrial contractions. Seventy-three/Min. Left ventricular hypertrophy/slight QRS widening. [id number], Complete Assessment & Plan Assessment & Plan (1) Atrial flutter: Code(s): I48.92 - Unspecified atrial flutter Qualifiers: Atrial flutter type: typical Qualified Code(s): I48.3 - Typical atrial flutter Plan: Remains on metoprolol and Eliquis. Due to frequent PACs on EKG, increased chance of recurrence. We will do Holter. Possibly consider an agent like Multaq. Alternatively, we can go up on the beta-blockers and decrease amlodipine dosing. (2) Cardiomyopathy: Comment: tachycardia induced 2020, recovered EF to 60 % on Echo 07/25, coronary angiogram 2020 Code(s): I42.9 - Cardiomyopathy, unspecified Qualifiers: Cardiomyopathy type: other Qualified Code(s): I42.8 - Other cardiomyopathies Plan: Initial echocardiogram with LVEF of 26%. Repeat study with 40-45%. Apical inferior/apical septum akinetic. In the most recent study, LVEF 55-60%. Myocardial perfusion imaging with apical anteroseptal, anterior, lateral defect with ischemia/infarct pattern. Basal inferolateral wall infarct. However, cardiac catheterization with normal coronaries. 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 Perfusion imaging findings could be just related to cardiomyopathy. Clinically, no heart failure. Continue metoprolol, irbesartan. (3) Essential hypertension: Code(s): I10 - Essential (primary) hypertension Plan: On Irbesartan, Triamterene-Hydrochlorothiazide and amlodipine. Stable. Plan Discussed with son. Orders: Orders ECG 3 day holter monitor Today I48.3 - Typical atrial flutter Coding Level of Care Code Est Pt Level 4 (92804) Diagnoses Typical atrial flutter I48.3 Atrial flutter type: typical Other cardiomyopathy I42.8 Cardiomyopathy type: other Essential hypertension I10 CPT Codes EKG - CPT: 10388-[id number], Complete ([id number])
[2023-09-17 15:02] VITALS: BP 114/62; PULSE 73; BMI 31.5
== END 2023-09-17 15:21 | disposition home or self-care (01) ==
PROVIDERS: Visit Provider Internal Medicine
DX: I48.3 Typical atrial flutter (principal); I42.8 Other cardiomyopathies; I10 Essential (primary) hypertension
CPT/HCPCS: 93010; 99214

== ENCOUNTER → 2023-09-17 14:52 | Outpatient (BNVA) | payer MEDICARE, SELFPAY | PROVIDERS: Visit Provider Internal Medicine | DX: I48.3 Typical atrial flutter (principal); I42.8 Other cardiomyopathies; I10 Essential (primary) hypertension | CPT/HCPCS: 93005; 99212 ==

== ENCOUNTER → 2023-10-26 11:18 | Outpatient (REF) | payer MEDICARE, SELFPAY ==
--- NOTE | 2023-10-26 11:21 | HM_ITS ---
Conclusion: 1. Patient was monitored for total period of 3 days 2. Baseline was normal sinus rhythm with average heart of 66 beats per minute 3. No significant pauses noted 4. Frequent PACs noted with total burden of 14.6%, with aberrancy with frequent supraventricular ectopy run, fastest at 150 beats per minute and longest at 25 beats 5. Occasional PVCs noted 6. No patient reported events MTDD
== END ==
LOC: HO.CARD 11:18
PROVIDERS: PCP Internal Medicine; Visit Provider Internal Medicine
DX: I48.3 Typical atrial flutter (principal)
CPT/HCPCS: 93242

== ENCOUNTER → 2023-10-26 11:21 | Outpatient (BNV) | payer MEDICARE, SELFPAY | PROVIDERS: PCP Internal Medicine; Visit Provider Internal Medicine Cardiovascular Disease | DX: I47.10 Supraventricular tachycardia, unspecified (principal) | CPT/HCPCS: 93244 ==

== ENCOUNTER 2024-01-11 08:29 | Outpatient (REF) | payer MEDICARE, SELFPAY ==
[2024-01-11 10:39] LABS: MANUAL DIFF FLAG NO
[2024-01-11 10:53] LABS: Basophils Percent Auto 0.4 % (0-2); Eosinophils Absolute Auto 0.4 X10*3/uL (0.0-0.4); Eosinophils Percent Auto 4.1 % (0-4); Hematocrit 37.9 % (37.0-47.0); Hemoglobin 12.7 g/dl (12.0-16.0); Imm Gran Abs Auto 0.04 X10*3/uL (0.00-0.03); Imm Gran Pct Auto 0.5 % (0.0-0.4); Lymphocytes Absolute Auto 1.7 X10*3/uL (1.2-4.9); Lymphocytes Percent Auto 20.2 % (20-40); Mean Corpuscular HGB Conc 33.5 g/dl (31.0-35.0); Mean Corpuscular Hemoglobin 30.5 pg (27.0-33.0); Mean Corpuscular Volume 91.1 fL (80.0-98.0); Mean Platelet Volume 10.6 fL (9.4-12.3); Monocytes Absolute Auto 0.8 X10*3/uL (0.1-1.2); Neutrophils Absolute Auto 5.6 x10*3/uL (2.0-8.3); Neutrophils Percent Auto 65.8 % (45-73); Platelet Count 248 X10*3/uL (160-400); Red Blood Count 4.16 X10*6/uL (4.20-5.50); Red Cell Distribution Width 12.6 % (11.0-16.0); White Blood Count 8.5 X10*3/uL (4.8-10.8)
[2024-01-11 11:00] LABS: Estimated Average Glucose 126 mg/dL
[2024-01-11 11:57] LABS: Alanine Aminotransferase 20 U/L (0-31); Albumin Level 4.3 g/dL (3.5-5.0); Alkaline Phosphatase 66 U/L (39-117); Anion Gap 15 (12-20); Aspartate Amino Transferase 20 U/L (5-31); Bilirubin Total 1.7 mg/dL (0.0-1.0); Blood Urea Nitrogen 15 mg/dL (9-16); Calcium 9.5 mg/dL (8.4-10.2); Carbon Dioxide 24 mmol/L (22-29); Chloride 105 mmol/L (96-108); Cholesterol 111 mg/dL (<200); Estimated Glomerular Filt Rate > 60; Glucose Fasting 103 mg/dL (60-99); HDL Cholesterol 47 mg/dL (>40); LDL Cholesterol Calculated 41 mg/dL (<100); Potassium 3.4 mmol/L (3.3-5.1); Sodium 141 mmol/L (135-145); Total Protein 7.6 g/dL (6.5-8.0); Triglycerides 119 mg/dL (<150)
[2024-01-11 16:30] LABS: Creatinine Urine 76.32 mg/dL; Microalbum/Creatinine Ratio Ur 11.7 ug/mg cr (<30)
== END 2024-01-11 08:30 | disposition home or self-care (01) ==
LOC: HO.HMGCLDS 08:29
PROVIDERS: PCP Internal Medicine; Visit Provider Internal Medicine
DX: E78.5 Hyperlipidemia, unspecified (principal); R73.9 Hyperglycemia, unspecified; E03.9 Hypothyroidism, unspecified; I10 Essential (primary) hypertension; I48.0 Paroxysmal atrial fibrillation; I42.9 Cardiomyopathy, unspecified
CPT/HCPCS: 36415; 80053; 80061; 82043; 82570; 83036; 84443; 85025

== ENCOUNTER 2024-01-17 11:57 | Outpatient (AMB) | payer MEDICARE, SELFPAY ==
--- NOTE | 2024-01-17 12:00 | MHC.PC.OV ---
Vital Signs 01/17/24 12:14 Height 5 ft 2 in Weight 174 lb BMI 31.8 BP 136/78 Blood Pressure Location Rt brachial Position Sitting Pulse 60 Pulse Source Pulse Oximeter Pulse Oximetry (%) 95 Oxygen Delivery Method Room Air Intake Visit Reasons: 6 month follow up Intake Note: Pt is here today for her 6mo. f/u Allergies No Known Allergies Allergy (Verified 01/17/24 12:16) Medication List - Last Reconciled 01/17/24 by Dalila Foreman MD amlodipine 10 mg PO DAILY amlodipine 2.5 mg PO DAILY apixaban (Eliquis) 5 mg PO BID irbesartan 300 mg PO DAILY levothyroxine 50 mcg PO DAILY metoprolol succinate ER 25 mg PO BID rosuvastatin 20 mg PO DAILY triamterene-hydrochlorothiazid 37.5-25 mg 1 tab PO DAILY Tobacco use date assessed: 01/17/24 Fall risk assessment: No Falls in past year Last assessed Fall Risk: 01/17/24 Dental Screening Dental Screen Date: 01/17/24 Did you have a dental visit in the last 12 months?: Yes Did you have a dental problem in the last 6 months where you did not have access to dental care?: No Was dental information given to patient?: Patient has dentist HPI 6 month follow up HPI Details Patient presents for the follow-up of hypertension hyperlipidemia hypothyroidism diet control hyperglycemia. Patient had a Holter monitor was found to have frequent PVCs although asymptomatic. Metoprolol was increased to 50 mg a day and patient was told to take half a tablet of amlodipine 2 months ago. She reports feeling episodes of fatigue and fluctuating blood pressure. She denies chest pain or palpitations. [facility] Medical History (Updated 01/17/24 @ 12:55 by Dalila Foreman MD) Hyperglycemia Hypothyroidism Atrial flutter Essential hypertension Cardiomyopathy Hyperlipidemia Osteoarthritis of right knee Hypertension H/O bone density study Surgical History H/O colonoscopy Family History Mother HTN (hypertension) Stroke Social History Housing: House Patient Tobacco Use Status: Never used Tobacco e-Cigarette/Vaping Use: Never Used service: No Current occupational status: retired Cognitive needs: No Hearing needs: No Vision needs: Yes Questionnaire Thrive Questionnaire Date Thrive assessed: 01/10/23 AUDIT C Alcohol Use Questionnaire (AUDIT-C) 1. How often do you have a drink containing alcohol?: Never Total Score: 0 OLGA LIDIA-7 AMB Questionnaire OLGA LIDIA-7 Date OLGA LIDIA - 7 assessed: 01/10/23 Source: Developed by Drs. Ferd Soto, Prisca Freedman, Rufino Matos and colleagues, with an educational darius from [employer]. Review of Systems Const All systems reviewed & are unremarkable except as noted in HPI and below Reports no additional complaints Eyes Reports no additional complaints ENT Reports no additional complaints Card Reports no additional complaints Resp Reports no additional complaints GI Reports no additional complaints Reports no additional complaints Physical exam (Primary Care) Vital Signs: Last Vital Signs Pulse 60 01/17/24 12:14 BP 152/78 H 01/17/24 12:14 Pulse Ox 95 01/17/24 12:14 Oxygen Delivery Method Room Air 01/17/24 12:14 BMI result Body Mass Index 31.8 Tobacco/Smoking Status: Tobacco use Status Tobacco use date assessed 01/17/24 01/17/24 12:18 Patient Tobacco Use Status Never used Tobacco 01/17/24 12:00 e-Cigarette/Vaping Use Never Used 01/17/24 12:00 Thrive Assessment: Date of Thrive Assessment Date Thrive assessed 01/10/23 01/17/24 12:00 Const General: no acute distress HENMT Head: Yes normal to inspection Ears: hearing grossly normal bilaterally Eyes General: appearance normal, both eyes and all related structures Neck Neck: Yes supple Resp Effort & Inspection: normal respiratory effort Auscultation: clear to auscultation bilaterally Cardio Rate: bradycardic Heart sounds: S1 normal heart sound present and S2 normal heart sound present GI Inspection: Yes normal to inspection Palpation (GI): Soft to palpation Percussion: Yes normal to percussion Auscultation: normal bowel sounds Assessment and Plan Assessment & Plan (1) Asymptomatic PVCs: Comment: Holter 10/27 Code(s): I49.3 - Ventricular premature depolarization Plan: Patient was advised to try taking metoprolol twice a day versus 50 mg once a day and she has a follow-up appointment with Cardiology in March. EKG showed sinus bradycardia at 56 occasionally PVCs (2) Hyperlipidemia: Code(s): E78.5 - Hyperlipidemia, unspecified Plan: Continue statin (3) Hyperglycemia: Code(s): R73.9 - Hyperglycemia, unspecified Plan: A1c is 6.0, ADA diet regular physical activity discussed with the patient (4) PAF (paroxysmal atrial fibrillation): Code(s): I48.0 - Paroxysmal atrial fibrillation Plan: Anticoagulated on Eliquis (5) Cardiomyopathy: Comment: tachycardia induced 2020, recovered EF to 60 % on Echo 07/25, nl coronary angiogram 2020 Code(s): I42.9 - Cardiomyopathy, unspecified Qualifiers: Cardiomyopathy type: other Qualified Code(s): I42.8 - Other cardiomyopathies Plan: Continue current medications (6) Hypertension: Code(s): I10 - Essential (primary) hypertension Plan: Blood pressure has been higher since patient has been taking 5 mg of amlodipine. 2.5 mg of amlodipine to take with 5 mg will be started patient will monitor her blood pressure at home. she will follow-up in 6 weeks Medications: New amlodipine Take with a half a tablet of 10 mg of amlodipine 2.5 mg PO DAILY 90 tabs 0RF Changed From metoprolol succinate ER 25 mg PO DAILY 90 tabs 3RF To metoprolol succinate ER 25 mg PO BID 180 tabs 3RF Coding Level of Care Code Est Pt Level 4 (93060) Diagnoses Asymptomatic PVCs I49.3 Hyperlipidemia E78.5 Hyperglycemia R73.9 PAF (paroxysmal atrial fibrillation) I48.0 Other cardiomyopathy I42.8 Cardiomyopathy type: other Hypertension I10
[2024-01-17 12:14] VITALS: BP 136/78; PULSE 60; O2SAT 95; BMI 31.8
== END 2024-01-17 13:02 | disposition home or self-care (01) ==
PROVIDERS: PCP Internal Medicine; Visit Provider Internal Medicine
DX: I49.3 Ventricular premature depolarization (principal); I48.0 Paroxysmal atrial fibrillation; I42.8 Other cardiomyopathies; E78.5 Hyperlipidemia, unspecified; R73.9 Hyperglycemia, unspecified; I10 Essential (primary) hypertension
CPT/HCPCS: 99214

== ENCOUNTER 2024-03-10 11:35 | Outpatient (AMB) | payer MEDICARE, SELFPAY ==
[2024-03-10 12:14] VITALS: BP 132/80; PULSE 57; O2SAT 96; BMI 31.5
--- NOTE | 2024-03-10 12:14 | MHC.PC.OV ---
Vital Signs 03/10/24 12:14 Height 5 ft 2 in Weight 172 lb BMI 31.5 BP 132/80 Blood Pressure Location Rt brachial Position Sitting Pulse 57 Pulse Source Pulse Oximeter Pulse Oximetry (%) 96 Oxygen Delivery Method Room Air Intake Visit Reasons: 6WK F/U timo from 02/26/24 Intake Note: Pt is here today for her 6wks f/u Allergies No Known Allergies Allergy (Verified 03/10/24 12:15) Medication List - Last Reconciled 03/10/24 by Dalila Foreman MD amlodipine 10 mg PO DAILY amlodipine 2.5 mg PO DAILY apixaban (Eliquis) 5 mg PO BID irbesartan 300 mg PO DAILY levothyroxine 50 mcg PO DAILY metoprolol succinate ER 25 mg PO BID rosuvastatin 20 mg PO DAILY triamterene-hydrochlorothiazid 37.5-25 mg 1 tab PO DAILY Tobacco use date assessed: 03/10/24 Fall risk assessment: No Falls in past year Last assessed Fall Risk: 03/10/24 Dental Screening Dental Screen Date: 03/10/24 Did you have a dental visit in the last 12 months?: Yes Did you have a dental problem in the last 6 months where you did not have access to dental care?: No Was dental information given to patient?: Patient has dentist HPI 6WK F/U timo from 02/26/24 HPI Details PATIENT PRESENTS FOR THE FOLLOW-UP ON HYPERTENSION. SHE HAS BEEN TAKING 7.5 MG OF AMLODIPINE and reports better controlled blood pressure at home. Hypothyroidism and hyperlipidemia are stable on current medications. [facility] Medical History Hyperglycemia Hypothyroidism Atrial flutter Essential hypertension Cardiomyopathy Hyperlipidemia Osteoarthritis of right knee Hypertension H/O bone density study Surgical History H/O colonoscopy Family History Mother HTN (hypertension) Stroke Social History Housing: House Patient Tobacco Use Status: Never used Tobacco e-Cigarette/Vaping Use: Never Used service: No Current occupational status: retired Cognitive needs: No Hearing needs: No Vision needs: Yes Questionnaire Thrive Questionnaire Date Thrive assessed: 01/10/23 OLGA LIDIA-7 AMB Questionnaire OLGA LIDIA-7 Date OLGA LIDIA - 7 assessed: 01/10/23 Source: Developed by Drs. Fred Soto, Prisca Freedman, Rufino Matos and colleagues, with an educational darius from [employer]. Review of Systems Eyes Reports no additional complaints ENT Reports no additional complaints Card Reports no additional complaints Resp Reports no additional complaints GI Reports no additional complaints Reports no additional complaints Physical exam (Primary Care) Vital Signs: Last Vital Signs Pulse 57 03/10/24 12:14 BP 132/80 03/10/24 12:14 Pulse Ox 96 03/10/24 12:14 Oxygen Delivery Method Room Air 03/10/24 12:14 BMI result Body Mass Index 31.5 Tobacco/Smoking Status: Tobacco use Status Tobacco use date assessed 03/10/24 03/10/24 12:16 Patient Tobacco Use Status Never used Tobacco 03/10/24 12:16 e-Cigarette/Vaping Use Never Used 03/10/24 12:16 Thrive Assessment: Date of Thrive Assessment Date Thrive assessed 01/10/23 03/10/24 12:16 Const General: no acute distress Neck Neck: Yes supple Resp Effort & Inspection: normal respiratory effort Auscultation: clear to auscultation bilaterally Cardio Rhythm: regular rhythm Heart sounds: S1 normal heart sound present and S2 normal heart sound present GI Inspection: Yes normal to inspection Palpation (GI): Soft to palpation Assessment and Plan Assessment & Plan (1) Hyperlipidemia: Code(s): E78.5 - Hyperlipidemia, unspecified Plan: Continue crestor (2) PAF (paroxysmal atrial fibrillation): Code(s): I48.0 - Paroxysmal atrial fibrillation Plan: Controlled on metoprolol and anticoagulated on Eliquis (3) Hypothyroidism: Code(s): E03.9 - Hypothyroidism, unspecified Plan: Continue levothyroxine (4) Hyperglycemia: Code(s): R73.9 - Hyperglycemia, unspecified (5) Essential hypertension: Code(s): I10 - Essential (primary) hypertension Plan: Continue current medications, return in August for physical Orders: Orders Comprehensive [place]. Panel Fast 5 Months E03.9 - Hypothyroidism, unspecified, E78.5 - Hyperlipidemia, unspecified, I48.0 - Paroxysmal atrial fibrillation, R73.9 - Hyperglycemia, unspecified Complete Blood Count Auto Diff 5 Months E03.9 - Hypothyroidism, unspecified, E78.5 - Hyperlipidemia, unspecified, I48.0 - Paroxysmal atrial fibrillation, R73.9 - Hyperglycemia, unspecified TSH reflex Free T4 5 Months E03.9 - Hypothyroidism, unspecified, E78.5 - Hyperlipidemia, unspecified, I48.0 - Paroxysmal atrial fibrillation, R73.9 - Hyperglycemia, unspecified Hemoglobin A1c 5 Months E03.9 - Hypothyroidism, unspecified, E78.5 - Hyperlipidemia, unspecified, I48.0 - Paroxysmal atrial fibrillation, R73.9 - Hyperglycemia, unspecified Lipid Panel 5 Months E03.9 - Hypothyroidism, unspecified, E78.5 - Hyperlipidemia, unspecified, I48.0 - Paroxysmal atrial fibrillation, R73.9 - Hyperglycemia, unspecified Medications: Changed From amlodipine 10 mg PO DAILY 90 tabs 3RF To amlodipine 5 mg orally daily; 90 tabs 3RF Coding Level of Care Code Est Pt Level 4 (61352) Complex EM visit Add On G2211 Diagnoses Hyperlipidemia E78.5 PAF (paroxysmal atrial fibrillation) I48.0 Hypothyroidism E03.9 Hyperglycemia R73.9 Essential hypertension I10
== END 2024-03-10 13:15 | disposition home or self-care (01) ==
PROVIDERS: PCP Internal Medicine; Visit Provider Internal Medicine
DX: E78.5 Hyperlipidemia, unspecified (principal); I48.0 Paroxysmal atrial fibrillation; E03.9 Hypothyroidism, unspecified; R73.9 Hyperglycemia, unspecified; I10 Essential (primary) hypertension
CPT/HCPCS: 99214; G2211

== ENCOUNTER 2024-03-19 15:04 | Outpatient (AMB) | payer MEDICARE, SELFPAY ==
[2024-03-19 15:08] VITALS: BP 154/78; PULSE 61; BMI 31.3
--- NOTE | 2024-03-19 15:08 | MHC.OFFVIS ---
Vital Signs 03/19/24 15:08 Height 5 ft 2 in Weight 171 lb 1.259 oz BMI 31.3 BP 154/78 H Blood Pressure Location Lt brachial Position Sitting Pulse 61 Pulse Source Pulse Oximeter Intake Visit Reasons: 6 mth s/p holter [employer] Required: Yes [employer] Name: Josafat- son Accompanied by: Son Allergies No Known Allergies Allergy (Verified 03/10/24 12:15) Medication List - Last Reconciled 03/19/24 by Juve Pop MD amlodipine 2.5 mg PO DAILY amlodipine 5 mg orally daily; apixaban (Eliquis) 5 mg PO BID irbesartan 300 mg PO DAILY levothyroxine 50 mcg PO DAILY metoprolol succinate ER 50 mg PO DAILY rosuvastatin 20 mg PO DAILY triamterene-hydrochlorothiazid 37.5-25 mg 1 tab PO DAILY HPI Comments Details: Steph returns for follow-up. In 2020, she was seen in the hospital regarding atrial flutter with rapid rate. Spontaneously converted to sinus rhythm. Echocardiogram had shown markedly diminished LVEF. Briefly on amiodarone but then stopped. She remains on beta-blockers. Since last seen, she is generally doing fine. No specific complaints from cardiac. [facility] Medical History Hyperglycemia Hypothyroidism Atrial flutter Essential hypertension Cardiomyopathy Hyperlipidemia Osteoarthritis of right knee Hypertension H/O bone density study Surgical History H/O colonoscopy Family History Mother HTN (hypertension) Stroke Social History Housing: House Alcohol intake: never Patient Tobacco Use Status: Never used Tobacco e-Cigarette/Vaping Use: Never Used service: No Current occupational status: retired Cognitive needs: No Hearing needs: No Vision needs: Yes Review of Systems Const Denies chills, Denies fatigue, Denies fever(s), Denies weight gain and Denies weight loss ENT Denies dizziness Card Denies chest pain, Denies leg edema, Denies lightheadedness, Denies palpitations, Denies dyspnea on exertion, Denies orthopnea and Denies other Resp Denies cough and Denies dyspnea on exertion GI Denies hematochezia and Denies change in stool character Musc Denies abnormal gait, Denies muscle weakness, Denies numbness, Denies radiating pain into limb and Denies tingling Neuro Denies abnormal gait, Denies dizziness, Denies numbness and Denies tingling Endo Denies fatigue and Denies palpitations Physical Exam Vital Signs: Last Vital Signs Pulse 61 03/19/24 15:08 BP 154/78 H 03/19/24 15:08 BMI result Body Mass Index 31.3 Const General: comfortable and no acute distress Orientation/consciousness: patient oriented x3 HEENT Other: Unremarkable Head: Yes normal to inspection Neck Neck: Yes normal visual inspection Chest Chest palpation & inspection: normal inspection of the chest Resp Auscultation: clear to auscultation bilaterally Cardio Palpation: normal PMI Heart sounds: S1 normal heart sound present, S2 normal heart sound present, no gallops, no murmurs and no rubs GI Palpation (GI): Soft to palpation Back/Spine/Pelvis Other: unremarkable Skin General skin exam: no rashes or lesions noted Neuro General: patient oriented x3 Extrem General: Yes normal to inspection Psych Mental Status: mental status grossly normal Assessment & Plan Assessment & Plan (1) Atrial flutter: Code(s): I48.92 - Unspecified atrial flutter Category: Medical Qualifiers: Atrial flutter type: typical Qualified Code(s): I48.3 - Typical atrial flutter Plan: In the last Holter, frequent PACs with a burden of 14% but no atrial flutter or fibrillation. Beta-toyin dose was then increased. Otherwise, continue anticoagulation. (2) Cardiomyopathy: Comment: tachycardia induced 2020, recovered EF to 60 % on Echo 07/25, coronary angiogram 2020 Code(s): I42.9 - Cardiomyopathy, unspecified Category: Medical Qualifiers: Cardiomyopathy type: other Qualified Code(s): I42.8 - Other cardiomyopathies Plan: Initial echocardiogram with LVEF of 26%. Repeat study with 40-45%. Apical inferior/apical septum akinetic. In the most recent study, LVEF 55-60%. Myocardial perfusion imaging with apical anteroseptal, anterior, lateral defect with ischemia/infarct pattern. Basal inferolateral wall infarct. However, cardiac catheterization with normal coronaries. 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 Perfusion imaging findings could be just related to cardiomyopathy. Continue metoprolol, irbesartan. (3) Essential hypertension: Code(s): I10 - Essential (primary) hypertension Category: Medical Plan: Slightly high today. However home blood pressures apparently the normal range. Advised him to monitor for now. If it goes up, we can just change the amlodipine back to 10 mg daily. She was previously on 10 mg daily but we decreased it when we increase the beta-toyin dosing. Otherwise, also on irbesartan, triamterene/HCTZ. Plan Discussed with son. Coding Level of Care Code Est Pt Level 4 (65931) Diagnoses Typical atrial flutter I48.3 Atrial flutter type: typical Other cardiomyopathy I42.8 Cardiomyopathy type: other Essential hypertension I10
== END 2024-03-19 15:26 | disposition home or self-care (01) ==
PROVIDERS: PCP Internal Medicine; Visit Provider Internal Medicine
DX: I48.3 Typical atrial flutter (principal); I42.8 Other cardiomyopathies; I10 Essential (primary) hypertension
CPT/HCPCS: 99214

== ENCOUNTER → 2024-03-19 15:04 | Outpatient (BNVA) | payer MEDICARE, SELFPAY | PROVIDERS: PCP Internal Medicine; Visit Provider Internal Medicine | DX: I48.3 Typical atrial flutter (principal); I42.8 Other cardiomyopathies; I10 Essential (primary) hypertension; Z79.01 Long term (current) use of anticoagulants; Z79.899 Other long term (current) drug therapy | CPT/HCPCS: 99212 ==

== ENCOUNTER 2024-08-06 08:30 | Outpatient (REF) | payer MEDICARE, SELFPAY ==
[2024-08-06 10:10] LABS: MANUAL DIFF FLAG NO
[2024-08-06 10:25] LABS: Basophils Absolute Auto 0.1 X10*3/uL (0.0-0.2); Basophils Percent Auto 0.7 % (0-2); Eosinophils Absolute Auto 0.2 X10*3/uL (0.0-0.4); Eosinophils Percent Auto 2.7 % (0-4); Hematocrit 35.7 % (37.0-47.0); Hemoglobin 12.1 g/dl (12.0-16.0); Imm Gran Abs Auto 0.03 X10*3/uL (0.00-0.03); Imm Gran Pct Auto 0.4 % (0.0-0.4); Lymphocytes Absolute Auto 1.6 X10*3/uL (1.2-4.9); Lymphocytes Percent Auto 20.5 % (20-40); Mean Corpuscular HGB Conc 33.9 g/dl (31.0-35.0); Mean Corpuscular Hemoglobin 30.3 pg (27.0-33.0); Mean Corpuscular Volume 89.5 fL (80.0-98.0); Mean Platelet Volume 10.6 fL (9.4-12.3); Monocytes Absolute Auto 0.6 X10*3/uL (0.1-1.2); Monocytes Percent Auto 7.4 % (2-11); Neutrophils Absolute Auto 5.2 x10*3/uL (2.0-8.3); Neutrophils Percent Auto 68.3 % (45-73); Platelet Count 276 X10*3/uL (160-400); Red Blood Count 3.99 X10*6/uL (4.20-5.50); Red Cell Distribution Width 12.4 % (11.0-16.0); White Blood Count 7.7 X10*3/uL (4.8-10.8)
[2024-08-06 10:39] LABS: Estimated Average Glucose 128 mg/dL; Hemoglobin A1C 133.8521 umol/L; Hemoglobin A1c % 6.1 % (<6.0); Total Hemoglobin (HGBA1C) 3070.4247 umol/L
[2024-08-06 11:09] LABS: Alanine Aminotransferase 28 U/L (0-31); Albumin Level 4.3 g/dL (3.5-5.0); Alkaline Phosphatase 59 U/L (39-117); Anion Gap 12 (12-20); Aspartate Amino Transferase 34 U/L (5-31); Bilirubin Total 1.5 mg/dL (0.0-1.0); Blood Urea Nitrogen 13 mg/dL (9-16); Calcium 9.8 mg/dL (8.4-10.2); Carbon Dioxide 27 mmol/L (22-29); Chloride 107 mmol/L (96-108); Cholesterol 113 mg/dL (<200); Estimated Glomerular Filt Rate > 60; Glucose Fasting 109 mg/dL (60-99); HDL Cholesterol 43 mg/dL (>40); LDL Cholesterol Calculated 46 mg/dL (<100); Potassium 3.6 mmol/L (3.3-5.1); Sodium 142 mmol/L (135-145); TSH reflex Free T4 1.85 uIU/mL (0.32-4.0); Total Protein 7.4 g/dL (6.5-8.0); Triglycerides 124 mg/dL (<150)
== END 2024-08-06 08:31 | disposition home or self-care (01) ==
LOC: HO.HMGCLDS 08:30
PROVIDERS: PCP Internal Medicine; Visit Provider Internal Medicine
DX: E78.5 Hyperlipidemia, unspecified (principal); R73.9 Hyperglycemia, unspecified; E03.9 Hypothyroidism, unspecified; I48.0 Paroxysmal atrial fibrillation
CPT/HCPCS: 36415; 80053; 80061; 83036; 84443; 85025

== ENCOUNTER 2024-08-13 11:29 | Outpatient (AMB) | payer MEDICARE, SELFPAY ==
--- NOTE | 2024-08-13 11:44 | MHC.PC.OV ---
Vital Signs 08/13/24 11:45 Height 5 ft 2 in Weight 169 lb BMI 30.9 BP 124/74 Blood Pressure Location Rt brachial Position Sitting Pulse 62 Pulse Source Pulse Oximeter Pulse Oximetry (%) 96 Oxygen Delivery Method Room Air Intake Visit Reasons: Annual PE - see comments Intake Note: Pt is here today for PE. Allergies No Known Allergies Allergy (Verified 08/13/24 11:47) Medication List - Last Reconciled 08/13/24 by Dalila Foreman MD amlodipine 2.5 mg PO DAILY amlodipine 5 mg orally daily; apixaban (Eliquis) 5 mg PO BID irbesartan 300 mg PO DAILY levothyroxine 50 mcg PO DAILY metoprolol succinate ER 50 mg PO DAILY rosuvastatin 20 mg PO DAILY triamterene-hydrochlorothiazid 37.5-25 mg 1 tab PO DAILY Tobacco use date assessed: 08/13/24 Fall risk assessment: No Falls in past year Last assessed Fall Risk: 08/13/24 Dental Screening Dental Screen Date: 03/10/24 HPI Annual PE - see comments HPI Details Patient presents for physical PFSH Medical History (Updated 08/13/24 @ 12:25 by Dalila Foreman MD) Hyperglycemia Hypothyroidism Essential hypertension Cardiomyopathy Hyperlipidemia Osteoarthritis of right knee Hypertension H/O bone density study Surgical History H/O colonoscopy Family History Mother HTN (hypertension) Stroke Social History Housing: House Alcohol intake: never Patient Tobacco Use Status: Never used Tobacco e-Cigarette/Vaping Use: Never Used service: No Current occupational status: retired Cognitive needs: No Hearing needs: No Vision needs: Yes Questionnaire PHQ-9 Over the last 2 weeks, how often have you been bothered by any of the following problems? 1. Little interest or pleasure in doing things: not at all 2. Feeling down, depressed, or hopeless: not at all 3. Trouble falling or staying asleep, or sleeping too much: not at all 4. Feeling tired or having little energy: not at all 5. Poor appetite or overeating: not at all 6. Feeling bad about yourself - or that you are a failure or have let yourself or your family down: not at all 7. Trouble concentrating on things, such as reading the newspaper or watching television: not at all 8. Moving or speaking so slowly that other people could have noticed. Or the opposite - being so fidgety or restless that you have been moving around a lot more than usual: not at all 9. Thoughts that you would be better off or of hurting yourself in some way: not at all Total score: 0 Depression Screening Interpretation: Negative Depression Screening Done: Yes 67029 - PHQ-9 Billing: Yes Source: Developed by Drs. Fred Soto, Prisca Freedman, Rufino Matos and colleagues, with an educational darius from [employer]. Thrive Questionnaire Date Thrive assessed: 08/13/24 I am a: Patient What is your living situation today?: I have a steady place to live Within the past 12 months, did the food you bought not last and you didn't have the money to get more?: I choose not to answer this question Within the past 12 months, did you worry whether your food would run out before you got money to buy more?: I choose not to answer this question Do you have trouble paying for medicines?: I choose not to answer this question Do you have trouble getting transportation to medical appointments?: I choose not to answer this question Do you have trouble paying your heating and electricity bill?: I choose not to answer this question Do you have trouble taking care of your child, family member or friend?: I choose not to answer this question Do you have trouble with day-to-day activities such as bathing, preparing meals, shopping, managing finances, etc.?: I choose not to answer this question Are you currently unemployed and looking for a job?: I choose not to answer this question Are you interested in more education?: I choose not to answer this question Please select the resources that you would like help with: None Currently or been in a relationship where the following occur: No concerns reported THRIVE Score: 0 AUDIT C Alcohol Use Questionnaire (AUDIT-C) 1. How often do you have a drink containing alcohol?: Never 3. How often do you have six or more drinks on one occasion?: Never Total Score: 0 OLGA LIDIA-7 AMB Questionnaire OLGA LIDIA-7 Date OLGA LIDIA - 7 assessed: 08/13/24 Feeling nervous, anxious, or on edge: 0 = Not at all Not being able to stop or control worryin = Not at all Worrying too much about different things: 0 = Not at all Trouble relaxin = Not at all Being so restless that it is hard to sit still: 0 = Not at all Becoming easily annoyed or irritable: 0 = Not at all Feeling afraid as if something awful might happen: 0 = Not at all Total OLGA LIDIA-7 score (0-4 normal; 5-9 mild; 10-14 moderate; 15-21 severe): 0 Source: Developed by Drs. Fred Soto, Prisca Freedman, Rufino Matos and colleagues, with an educational darius from [employer]. OLGA LIDIA-7 Assessment Billing OLGA LIDIA-7 Assessment Tool: OLGA LIDIA-7 Assessment 57117 Review of Systems Const All systems reviewed & are unremarkable except as noted in HPI and below Eyes Reports no additional complaints ENT Reports no additional complaints Card Reports no additional complaints Resp Reports no additional complaints GI Reports no additional complaints Reports no additional complaints Physical exam (Primary Care) Vital Signs: Last Vital Signs Pulse 62 08/13/24 11:45 BP 124/74 08/13/24 11:45 Pulse Ox 96 08/13/24 11:45 Oxygen Delivery Method Room Air 08/13/24 11:45 BMI result Body Mass Index 30.9 Tobacco/Smoking Status: Tobacco use Status Tobacco use date assessed 08/13/24 08/13/24 11:49 Patient Tobacco Use Status Never used Tobacco 08/13/24 11:45 e-Cigarette/Vaping Use Never Used 08/13/24 11:45 PHQ-9: PHQ-9 Score PHQ-9: Total score 0 08/13/24 11:55 Depression Screening Interpretation: Negative Thrive Assessment: Date of Thrive Assessment Date Thrive assessed 08/13/24 08/13/24 11:55 Currently or been in a relationship where the following occur: No concerns reported Const General: no acute distress HENMT Head: Yes normal to inspection Ears: hearing grossly normal bilaterally Face and sinus: Yes normal facial exam Eyes General: appearance normal, both eyes and all related structures Neck Neck: Yes supple Resp Effort & Inspection: normal respiratory effort Auscultation: clear to auscultation bilaterally Cardio Rhythm: regular rhythm Heart sounds: S1 normal heart sound present and S2 normal heart sound present GI Inspection: Yes normal to inspection Palpation (GI): Soft to palpation Percussion: Yes normal to percussion Auscultation: normal bowel sounds Coding Level of Care Code Est Pt Prev Care >65y(98263) Diagnoses Asymptomatic PVCs I49.3 Hyperlipidemia E78.5 Hyperglycemia R73.9 Hypothyroidism E03.9 PAF (paroxysmal atrial fibrillation) I48.0 Other cardiomyopathy I42.8 Cardiomyopathy type: other Hypertension I10 Additional Codes OLGA LIDIA-7 Assessment Billing - OLGA LIDIA-7 Assessment Tool: OLGA LIDIA-7 Assessment 53117 ([id number]) PHQ-9 - 94101 - PHQ-9 Billing: Yes ([id number]) Assessment & Plan Assessment & Plan (1) Asymptomatic PVCs: Comment: Holter 10/27 Code(s): I49.3 - Ventricular premature depolarization Category: Medical Plan: Continue metoprolol (2) Hyperlipidemia: Code(s): E78.5 - Hyperlipidemia, unspecified Category: Medical Plan: Continue statin (3) Hyperglycemia: Code(s): R73.9 - Hyperglycemia, unspecified Category: Medical Plan: A1c is 6.1, ADA diet increase exercise weight loss discussed with the patient (4) Hypothyroidism: Code(s): E03.9 - Hypothyroidism, unspecified Category: Medical Plan: Continue levothyroxine check TSH (5) PAF (paroxysmal atrial fibrillation): Comment: Echo 2021 nl EF, on Eliquis Code(s): I48.0 - Paroxysmal atrial fibrillation Category: Medical Plan: On metoprolol and Eliquis (6) Cardiomyopathy: Comment: tachycardia induced 2020, recovered EF to 60 % on Echo 07/25, nl coronary angiogram 2020 Code(s): I42.9 - Cardiomyopathy, unspecified Category: Medical Qualifiers: Cardiomyopathy type: other Qualified Code(s): I42.8 - Other cardiomyopathies Plan: Follow-up with cardiology (7) Hypertension: Code(s): I10 - Essential (primary) hypertension Category: Medical Plan: Continue current medications Orders: Orders Hemoglobin A1c 6 Months E03.9 - Hypothyroidism, unspecified, E78.5 - Hyperlipidemia, unspecified, I10 - Essential (primary) hypertension, R73.9 - Hyperglycemia, unspecified Comprehensive Colbert. Panel Fast 6 Months E03.9 - Hypothyroidism, unspecified, E78.5 - Hyperlipidemia, unspecified, I10 - Essential (primary) hypertension, R73.9 - Hyperglycemia, unspecified TSH reflex Free T4 6 Months E03.9 - Hypothyroidism, unspecified, E78.5 - Hyperlipidemia, unspecified, I10 - Essential (primary) hypertension, R73.9 - Hyperglycemia, unspecified Complete Blood Count Auto Diff 6 Months E03.9 - Hypothyroidism, unspecified, E78.5 - Hyperlipidemia, unspecified, I10 - Essential (primary) hypertension, R73.9 - Hyperglycemia, unspecified Lipid Panel 6 Months E03.9 - Hypothyroidism, unspecified, E78.5 - Hyperlipidemia, unspecified, I10 - Essential (primary) hypertension, R73.9 - Hyperglycemia, unspecified Medications: New metoprolol succinate ER 50 mg PO DAILY 90 tabs 3RF Changed From amlodipine 5 mg orally daily; 90 tabs 3RF To amlodipine 10 mg PO DAILY 90 tabs 3RF Refilled apixaban (Eliquis) 5 mg PO BID 180 tabs 3RF irbesartan 300 mg PO DAILY 90 tabs 3RF levothyroxine 50 mcg PO DAILY 90 tabs 3RF rosuvastatin 20 mg PO DAILY 90 tabs 3RF triamterene-hydrochlorothiazid 37.5-25 mg 1 tab PO DAILY 90 tabs 3RF Discontinued amlodipine Take with a half a tablet of 10 mg of amlodipine Discontinued Reason: Doctor's Order 2.5 mg PO DAILY 90 tabs 0RF
[2024-08-13 11:45] VITALS: BP 124/74; PULSE 62; O2SAT 96; BMI 30.9
== END 2024-08-13 12:27 | disposition home or self-care (01) ==
PROVIDERS: PCP Internal Medicine; Visit Provider Internal Medicine
DX: Z00.00 Encounter for general adult medical examination without abnormal findings (principal); I49.3 Ventricular premature depolarization; I48.0 Paroxysmal atrial fibrillation; I42.8 Other cardiomyopathies; E78.5 Hyperlipidemia, unspecified; Z68.30 Body mass index [BMI] 30.0-30.9, adult; R73.9 Hyperglycemia, unspecified; E03.9 Hypothyroidism, unspecified; I10 Essential (primary) hypertension

== ENCOUNTER → 2024-08-13 11:29 | Outpatient (BNVA) | payer MEDICARE, SELFPAY | PROVIDERS: PCP Internal Medicine; Visit Provider Internal Medicine | DX: Z00.00 Encounter for general adult medical examination without abnormal findings (principal); I49.3 Ventricular premature depolarization; E78.5 Hyperlipidemia, unspecified; R74.9 Abnormal serum enzyme level, unspecified; E03.9 Hypothyroidism, unspecified; I48.0 Paroxysmal atrial fibrillation; I42.9 Cardiomyopathy, unspecified; I10 Essential (primary) hypertension | CPT/HCPCS: 96127; 99397 ==

== ENCOUNTER 2024-09-15 14:53 | Outpatient (AMB) | payer MEDICARE, SELFPAY ==
[2024-09-15 15:02] VITALS: BP 140/60; PULSE 60; BMI 32.3
--- NOTE | 2024-09-15 15:02 | A.OFFVIS_ITS ---
Vital Signs 09/15/24 15:02 Height 5 ft 2 in Weight 176 lb 5.917 oz BMI 32.3 BP 140/60 H Blood Pressure Location Lt brachial Position Sitting Pulse 60 Pulse Source Pulse Oximeter Intake Visit Reasons: 6m follow up Ticker Installer Required: Yes Ticker Installer Services: Ticker Installer Offered & Declined Ticker Installer Name: son will interpret Accompanied by: Son Allergies No Known Allergies Allergy (Verified 08/13/24 11:47) Medication List - Last Reconciled 09/15/24 by Juve Pop MD amlodipine 10 mg PO DAILY apixaban (Eliquis) 5 mg PO BID irbesartan 300 mg PO DAILY levothyroxine 50 mcg PO DAILY metoprolol succinate ER 50 mg PO DAILY rosuvastatin 20 mg PO DAILY triamterene-hydrochlorothiazid 37.5-25 mg 1 tab PO DAILY HPI Comments Details: Steph returns for follow-up. In 2020, she was seen in the hospital regarding atrial flutter with rapid rate. Spontaneously converted to sinus rhythm. Echocardiogram had shown markedly diminished LVEF. Briefly on amiodarone but then stopped. She remains on beta-blockers. Overall, she states she is doing good. No cardiac complaints whatsoever. Son is accompanying her. [facility] Medical History (Updated 08/13/24 @ 12:25 by Dalila Foreman MD) Hyperglycemia Hypothyroidism Essential hypertension Cardiomyopathy Hyperlipidemia Osteoarthritis of right knee Hypertension H/O bone density study Surgical History H/O colonoscopy Family History Mother HTN (hypertension) Stroke Social History Housing: House Alcohol intake: never Patient Tobacco Use Status: Never used Tobacco e-Cigarette/Vaping Use: Never Used service: No Current occupational status: retired Cognitive needs: No Hearing needs: No Vision needs: Yes Review of Systems Const Denies chills, Denies fatigue, Denies fever(s), Denies weight gain and Denies weight loss ENT Denies dizziness Card Denies chest pain, Denies leg edema, Denies lightheadedness, Denies palpitations, Denies dyspnea on exertion, Denies orthopnea and Denies other Resp Denies cough and Denies dyspnea on exertion GI Denies hematochezia and Denies change in stool character Musc Denies abnormal gait, Denies muscle weakness, Denies numbness, Denies radiating pain into limb and Denies tingling Neuro Denies abnormal gait, Denies dizziness, Denies numbness and Denies tingling Endo Denies fatigue and Denies palpitations Physical Exam Vital Signs: Last Vital Signs Pulse 60 09/15/24 15:02 BP 140/60 H 09/15/24 15:02 BMI result Body Mass Index 32.3 Const General: comfortable and no acute distress Orientation/consciousness: patient oriented x3 HEENT Other: Unremarkable Head: Yes normal to inspection Neck Neck: Yes normal visual inspection Chest Chest palpation & inspection: normal inspection of the chest Resp Auscultation: clear to auscultation bilaterally Cardio Palpation: normal PMI Heart sounds: S1 normal heart sound present, S2 normal heart sound present, no gallops, no murmurs and no rubs GI Palpation (GI): Soft to palpation Back/Spine/Pelvis Other: unremarkable Skin General skin exam: no rashes or lesions noted Neuro General: patient oriented x3 Extrem General: Yes normal to inspection Psych Mental Status: mental status grossly normal Office Procedures EKG Details: EKG with underlying sinus rhythm; 66/Min; leftward axis; left ventricular hypertrophy; normal [place] and corrected QT. PACs. [id number], Complete Assessment & Plan Assessment & Plan (1) Atrial flutter: Code(s): I48.92 - Unspecified atrial flutter Category: Medical Qualifiers: Atrial flutter type: typical Qualified Code(s): I48.3 - Typical atrial flutter Plan: In the last Holter, frequent PACs with a burden of 14% but no atrial flutter or fibrillation. Beta-toyin dose was then increased. Otherwise, continue anticoagulation. (2) Cardiomyopathy: Comment: tachycardia induced 2020, recovered EF to 60 % on Echo 07/25, coronary angiogram 2020 Code(s): I42.9 - Cardiomyopathy, unspecified Category: Medical Qualifiers: Cardiomyopathy type: other Qualified Code(s): I42.8 - Other cardiomyopathies Plan: Initial echocardiogram with LVEF of 26%. Repeat study with 40-45%. Apical inferior/apical septum akinetic. In the most recent study, LVEF 55-60%. Myocardial perfusion imaging with apical anteroseptal, anterior, lateral defect with ischemia/infarct pattern. Basal inferolateral wall infarct. However, cardiac catheterization with normal coronaries. 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 Perfusion imaging findings could be just related to cardiomyopathy. Clinically doing well. Continue metoprolol/irbesartan. (3) Essential hypertension: Code(s): I10 - Essential (primary) hypertension Category: Medical Plan: On metoprolol, irbesartan, amlodipine, triamterene/HCTZ. Borderline high blood pressure today but apparently home blood pressures are only the 120s-130s. No changes made. Plan Discussed with son. Coding Level of Care Code Est Pt Level 4 (38646) Diagnoses Typical atrial flutter I48.3 Atrial flutter type: typical Other cardiomyopathy I42.8 Cardiomyopathy type: other Essential hypertension I10 CPT Codes EKG - CPT: 12410-[id number], Complete ([id number])
== END 2024-09-15 15:34 | disposition home or self-care (01) ==
PROVIDERS: PCP Internal Medicine; Visit Provider Internal Medicine
DX: I48.3 Typical atrial flutter (principal); I42.8 Other cardiomyopathies; I10 Essential (primary) hypertension
CPT/HCPCS: 93010; 99214

== ENCOUNTER → 2024-09-15 14:53 | Outpatient (BNVA) | payer MEDICARE, SELFPAY | PROVIDERS: PCP Internal Medicine; Visit Provider Internal Medicine | DX: I48.3 Typical atrial flutter (principal); I42.8 Other cardiomyopathies; I10 Essential (primary) hypertension; R94.31 Abnormal electrocardiogram [ECG] [EKG]; I51.7 Cardiomegaly | CPT/HCPCS: 93005; 99212 ==

== ENCOUNTER 2025-02-06 08:17 | Outpatient (REF) | payer MEDICARE, SELFPAY ==
[2025-02-06 10:20] LABS: MANUAL DIFF FLAG NO
[2025-02-06 10:32] LABS: Basophils Absolute Auto 0.1 X10*3/uL (0.0-0.2); Basophils Percent Auto 0.7 % (0-2); Eosinophils Absolute Auto 0.3 X10*3/uL (0.0-0.4); Eosinophils Percent Auto 3.3 % (0-4); Hematocrit 35.9 % (37.0-47.0); Hemoglobin 12.2 g/dl (12.0-16.0); Imm Gran Abs Auto 0.03 X10*3/uL (0.00-0.03); Imm Gran Pct Auto 0.4 % (0.0-0.4); Lymphocytes Absolute Auto 1.9 X10*3/uL (1.2-4.9); Lymphocytes Percent Auto 21.8 % (20-40); Mean Corpuscular Hemoglobin 30.3 pg (27.0-33.0); Mean Corpuscular Volume 89.1 fL (80.0-98.0); Mean Platelet Volume 10.6 fL (9.4-12.3); Monocytes Absolute Auto 0.7 X10*3/uL (0.1-1.2); Monocytes Percent Auto 7.8 % (2-11); Neutrophils Absolute Auto 5.6 x10*3/uL (2.0-8.3); Platelet Count 247 X10*3/uL (160-400); Red Blood Count 4.03 X10*6/uL (4.20-5.50); Red Cell Distribution Width 12.5 % (11.0-16.0); White Blood Count 8.5 X10*3/uL (4.8-10.8)
[2025-02-06 10:39] LABS: Estimated Average Glucose 131 mg/dL; Hemoglobin A1c % 6.2 % (<6.0)
[2025-02-06 13:05] LABS: TSH reflex Free T4 2.79 uIU/mL (0.32-4.0)
[2025-02-06 13:11] LABS: Anion Gap 13 (12-20)
[2025-02-06 13:23] LABS: Alanine Aminotransferase 27 U/L (0-31); Albumin Level 4.7 g/dL (3.5-5.0); Alkaline Phosphatase 62 U/L (39-117); Aspartate Amino Transferase 29 U/L (5-31); Blood Urea Nitrogen 18 mg/dL (9-16); Calcium 9.8 mg/dL (8.4-10.2); Carbon Dioxide 26 mmol/L (22-29); Chloride 106 mmol/L (96-108); Cholesterol 106 mg/dL (<200); Estimated Glomerular Filt Rate 54; Glucose Fasting 118 mg/dL (60-99); HDL Cholesterol 43 mg/dL (>40); LDL Cholesterol Calculated 40 mg/dL (<100); Potassium 3.7 mmol/L (3.3-5.1); Sodium 141 mmol/L (135-145); Total Protein 7.7 g/dL (6.5-8.0); Triglycerides 117 mg/dL (<150)
== END 2025-02-06 08:18 | disposition home or self-care (01) ==
LOC: HO.HMGCLDS 08:17
PROVIDERS: PCP Internal Medicine; Visit Provider Internal Medicine
DX: R73.9 Hyperglycemia, unspecified (principal); E78.5 Hyperlipidemia, unspecified; E03.9 Hypothyroidism, unspecified; I10 Essential (primary) hypertension
CPT/HCPCS: 36415; 80053; 80061; 83036; 84443; 85025

== ENCOUNTER 2025-02-26 10:31 | Outpatient (AMB) | payer MEDICARE, SELFPAY ==
[2025-02-26 10:33] VITALS: BP 122/74; PULSE 71; RESP 18; O2SAT 95; BMI 32.2
--- NOTE | 2025-02-26 10:33 | MHC.PC.OV ---
Vital Signs 02/26/25 10:33 Height 5 ft 2 in Weight 176 lb BMI 32.2 BP 122/74 Blood Pressure Location Rt brachial Position Sitting Respiration 18 Pulse 71 Pulse Source Pulse Oximeter Pulse Oximetry (%) 95 Oxygen Delivery Method Room Air Intake Visit Reasons: 6 months follow up on labs Intake Note: Pt is here today for 6 months follow up visit. Allergies No Known Allergies Allergy (Verified 08/13/24 11:47) Medication List - Last Reconciled 02/26/25 by Dalila Foreman MD amlodipine 10 mg PO DAILY apixaban (Eliquis) 5 mg PO BID irbesartan 300 mg PO DAILY levothyroxine 50 mcg PO DAILY metoprolol succinate ER 50 mg PO DAILY rosuvastatin 20 mg PO DAILY triamterene-hydrochlorothiazid 37.5-25 mg 1 tab PO DAILY Tobacco use date assessed: 02/26/25 Fall risk assessment: No Falls in past year Last assessed Fall Risk: 02/26/25 Dental Screening Dental Screen Date: 02/26/25 Did you have a dental visit in the last 12 months?: No Did you have a dental problem in the last 6 months where you did not have access to dental care?: No Was dental information given to patient?: Patient declined HPI 6 months follow up on labs HPI Details Patient presents for the follow-up on hypertension hypothyroidism hyperlipidemia history of AFib/aflutter anticoagulated on Eliquis. [facility] Medical History Hyperglycemia Hypothyroidism Essential hypertension Cardiomyopathy Hyperlipidemia Osteoarthritis of right knee Hypertension H/O bone density study Surgical History H/O colonoscopy Family History Mother HTN (hypertension) Stroke Social History Housing: House Alcohol intake: never Patient Tobacco Use Status: Never used Tobacco e-Cigarette/Vaping Use: Never Used service: No Current occupational status: retired Cognitive needs: No Hearing needs: No Vision needs: Yes Questionnaire PHQ-9 Over the last 2 weeks, how often have you been bothered by any of the following problems? 1. Little interest or pleasure in doing things: not at all 2. Feeling down, depressed, or hopeless: not at all 3. Trouble falling or staying asleep, or sleeping too much: not at all 4. Feeling tired or having little energy: not at all 5. Poor appetite or overeating: not at all 6. Feeling bad about yourself - or that you are a failure or have let yourself or your family down: not at all 7. Trouble concentrating on things, such as reading the newspaper or watching television: not at all 8. Moving or speaking so slowly that other people could have noticed. Or the opposite - being so fidgety or restless that you have been moving around a lot more than usual: not at all 9. Thoughts that you would be better off or of hurting yourself in some way: not at all Total score: 0 Depression Screening Interpretation: Negative Depression Screening Done: Yes 61138 - PHQ-9 Billing: Yes Source: Developed by Drs. Fred Soto, Prisca Freedman, Rufino Matos and colleagues, with an educational darius from [employer]. Thrive Questionnaire Date Thrive assessed: 02/26/25 I am a: Patient What is your living situation today?: I have a steady place to live Within the past 12 months, did the food you bought not last and you didn't have the money to get more?: I choose not to answer this question Within the past 12 months, did you worry whether your food would run out before you got money to buy more?: I choose not to answer this question Do you have trouble paying for medicines?: I choose not to answer this question Do you have trouble getting transportation to medical appointments?: I choose not to answer this question Do you have trouble paying your heating and electricity bill?: I choose not to answer this question Do you have trouble taking care of your child, family member or friend?: I choose not to answer this question Do you have trouble with day-to-day activities such as bathing, preparing meals, shopping, managing finances, etc.?: I choose not to answer this question Are you currently unemployed and looking for a job?: I choose not to answer this question Are you interested in more education?: I choose not to answer this question Please select the resources that you would like help with: None Currently or been in a relationship where the following occur: No concerns reported THRIVE Score: 0 AUDIT C Alcohol Use Questionnaire (AUDIT-C) 1. How often do you have a drink containing alcohol?: Never 3. How often do you have six or more drinks on one occasion?: Never Total Score: 0 OLGA LIDIA-7 AMB Questionnaire OLGA LIDIA-7 Date OLGA LIDIA - 7 assessed: 02/26/25 Feeling nervous, anxious, or on edge: 0 = Not at all Not being able to stop or control worryin = Not at all Worrying too much about different things: 0 = Not at all Trouble relaxin = Not at all Being so restless that it is hard to sit still: 0 = Not at all Becoming easily annoyed or irritable: 0 = Not at all Feeling afraid as if something awful might happen: 0 = Not at all Total OLGA LIDIA-7 score (0-4 normal; 5-9 mild; 10-14 moderate; 15-21 severe): 0 Source: Developed by Drs. Fred Soto, Prisca Freedman, Rufino Matos and colleagues, with an educational darius from [employer]. OLGA LIDIA-7 Assessment Billing OLGA LIDIA-7 Assessment Tool: OLGA LIDIA-7 Assessment 54504 Review of Systems Const All systems reviewed & are unremarkable except as noted in HPI and below Eyes Reports no additional complaints ENT Reports no additional complaints Card Reports no additional complaints Resp Reports no additional complaints GI Reports no additional complaints Reports no additional complaints Physical exam (Primary Care) Vital Signs: Last Vital Signs Pulse 71 02/26/25 10:33 Resp 18 02/26/25 10:33 BP 122/74 02/26/25 10:33 Pulse Ox 95 02/26/25 10:33 Oxygen Delivery Method Room Air 02/26/25 10:33 BMI result Body Mass Index 32.2 Tobacco/Smoking Status: Tobacco use Status Tobacco use date assessed 02/26/25 02/26/25 10:38 Patient Tobacco Use Status Never used Tobacco 02/26/25 10:33 e-Cigarette/Vaping Use Never Used 02/26/25 10:33 PHQ-9: PHQ-9 Score PHQ-9: Total score 0 02/26/25 11:11 Depression Screening Interpretation: Negative Thrive Assessment: Date of Thrive Assessment Date Thrive assessed 02/26/25 02/26/25 10:47 Currently or been in a relationship where the following occur: No concerns reported Const General: no acute distress HENMT Head: Yes normal to inspection Face and sinus: Yes normal facial exam Throat: Yes posterior oropharynx normal Neck Neck: Yes supple Resp Effort & Inspection: normal respiratory effort Auscultation: clear to auscultation bilaterally Cardio Rhythm: regular rhythm Heart sounds: S1 normal heart sound present and S2 normal heart sound present GI Inspection: Yes normal to inspection Palpation (GI): Soft to palpation Percussion: Yes normal to percussion Immunizations pneumoc 20-juan conj-dip cr(PF) 0.5 mL IM syringe Performing Provider: Dalila Foreman MD Performing Location: [facility] [place] [facility] Administered by: GABY Huang on 02/26/25 11:11 Dose Route Admin Location Dispensed Lot Number Expiration Date NDC Vacuum Cleaner Repair Person 0.5 mL IM Right Deltoid 0.5 mL [id number] 12/01/25 0696-8174-79 [employer] Total Dispensed Waste 0.5 mL 0 % VIS Given Date VIS Provided VIS Publication Date 02/26/25 Single Vaccine 25 Eligibility Eligibility Date Funding Source Not [facility] Eligible 02/26/25 Private Coding Level of Care Code Est Pt Level 4 (62553) Complex EM visit Add On G2211 Diagnoses PAF (paroxysmal atrial fibrillation) I48.0 Hyperlipidemia E78.5 Hypertension I10 Hypothyroidism E03.9 Hyperglycemia R73.9 Additional Codes OLGA LIDIA-7 Assessment Billing - OLGA LIDIA-7 Assessment Tool: OLGA LIDIA-7 Assessment 59792 ([id number]) PHQ-9 - 18192 - PHQ-9 Billing: Yes ([id number]) Assessment & Plan Assessment & Plan (1) PAF (paroxysmal atrial fibrillation): Comment: Echo 2021 nl EF, on Eliquis Code(s): I48.0 - Paroxysmal atrial fibrillation Category: Medical Plan: Continue Eliquis (2) Hyperlipidemia: Code(s): E78.5 - Hyperlipidemia, unspecified Category: Medical Plan: Continue statin (3) Hypertension: Code(s): I10 - Essential (primary) hypertension Category: Medical Plan: Continue current medications (4) Hypothyroidism: Code(s): E03.9 - Hypothyroidism, unspecified Category: Medical Plan: Continue levothyroxine (5) Hyperglycemia: Code(s): R73.9 - Hyperglycemia, unspecified Category: Medical Plan: A1c is 6.2, ADA diet increase exercise weight loss discussed with the patient. Follow-up in 6 months Orders: Orders Pneumococcal 20 Immunization Today Z23 - Encounter for immunization Comprehensive [place]. Panel Fast 6 Months E03.9 - Hypothyroidism, unspecified, E78.5 - Hyperlipidemia, unspecified, I10 - Essential (primary) hypertension, I48.0 - Paroxysmal atrial fibrillation Complete Blood Count Auto Diff 6 Months E03.9 - Hypothyroidism, unspecified, E78.5 - Hyperlipidemia, unspecified, I10 - Essential (primary) hypertension, I48.0 - Paroxysmal atrial fibrillation TSH reflex Free T4 6 Months E03.9 - Hypothyroidism, unspecified, E78.5 - Hyperlipidemia, unspecified, I10 - Essential (primary) hypertension, I48.0 - Paroxysmal atrial fibrillation Hemoglobin A1c 6 Months E03.9 - Hypothyroidism, unspecified, E78.5 - Hyperlipidemia, unspecified, I10 - Essential (primary) hypertension, I48.0 - Paroxysmal atrial fibrillation Microalbumin, Random (w Creat) 6 Months E03.9 - Hypothyroidism, unspecified, E78.5 - Hyperlipidemia, unspecified, I10 - Essential (primary) hypertension, I48.0 - Paroxysmal atrial fibrillation
== END 2025-02-26 11:28 | disposition home or self-care (01) ==
LOC: HO.HMCC 10:32
PROVIDERS: PCP Internal Medicine; Visit Provider Internal Medicine
DX: I48.0 Paroxysmal atrial fibrillation (principal); E78.5 Hyperlipidemia, unspecified; I10 Essential (primary) hypertension; E03.9 Hypothyroidism, unspecified; R73.9 Hyperglycemia, unspecified; Z23 Encounter for immunization

== ENCOUNTER → 2025-02-26 10:31 | Outpatient (BNVA) | payer MEDICARE, SELFPAY | PROVIDERS: PCP Internal Medicine; Visit Provider Internal Medicine | DX: Z23 Encounter for immunization (principal); I48.0 Paroxysmal atrial fibrillation; E78.5 Hyperlipidemia, unspecified; E03.9 Hypothyroidism, unspecified; I10 Essential (primary) hypertension; R73.9 Hyperglycemia, unspecified | CPT/HCPCS: 90471; 90677; 96127; 99212 ==

== ENCOUNTER 2025-08-14 09:53 | Outpatient (REF) | payer MEDICARE, SELFPAY ==
[2025-08-14 13:54] LABS: MANUAL DIFF FLAG NO
[2025-08-14 14:03] LABS: Hematocrit 36.9 % (37.0-47.0); Hemoglobin 12.4 g/dl (12.0-16.0); Imm Gran Abs Auto 0.03 X10*3/uL (0.00-0.03); Imm Gran Pct Auto 0.3 % (0.0-0.4); Lymphocytes Absolute Auto 2.0 X10*3/uL (1.2-4.9); Mean Corpuscular HGB Conc 33.6 g/dl (31.0-35.0); Mean Corpuscular Hemoglobin 29.7 pg (27.0-33.0); Mean Corpuscular Volume 88.5 fL (80.0-98.0); NRBC Abs Auto 0.000 X10*3/uL (0.0-0.012); NRBC Pct Auto 0.0 /100WBC (0.0-0.2); Platelet Count 298 X10*3/uL (160-400); Red Blood Count 4.17 X10*6/uL (4.20-5.50); White Blood Count 9.0 X10*3/uL (4.8-10.8)
[2025-08-14 14:41] LABS: Alanine Aminotransferase 27 U/L (0-31); Albumin Level 4.8 g/dL (3.5-5.0); Alkaline Phosphatase 64 U/L (39-117); Anion Gap 12 (12-20); Aspartate Amino Transferase 31 U/L (5-31); Blood Urea Nitrogen 12 mg/dL (9-16); Calcium 9.7 mg/dL (8.4-10.2); Carbon Dioxide 25 mmol/L (22-29); Chloride 105 mmol/L (96-108); Estimated Glomerular Filt Rate > 60; Potassium 3.6 mmol/L (3.3-5.1); Sodium 138 mmol/L (135-145); Total Protein 7.9 g/dL (6.5-8.0)
[2025-08-14 15:04] LABS: Microalbum/Creatinine Ratio Ur 10.4 ug/mg cr (<30)
== END 2025-08-14 09:54 | disposition home or self-care (01) ==
LOC: HO.HMGCLDS 09:53
PROVIDERS: PCP Internal Medicine; Visit Provider Internal Medicine
DX: I48.0 Paroxysmal atrial fibrillation (principal); E78.5 Hyperlipidemia, unspecified; E03.9 Hypothyroidism, unspecified; I10 Essential (primary) hypertension; Z13.1 Encounter for screening for diabetes mellitus
CPT/HCPCS: 36415; 80053; 82043; 82570; 83036; 84443; 85025

== ENCOUNTER 2025-08-21 11:56 | Outpatient (AMB) | payer MEDICARE, SELFPAY ==
[2025-08-21 11:59] VITALS: BP 126/74; PULSE 60; RESP 17; TEMP 36.7; O2SAT 96; BMI 31.6
--- NOTE | 2025-08-21 11:59 | A.OFFPC_ITS ---
Vital Signs 08/21/25 11:59 Height 5 ft 2 in Weight 173 lb BMI 31.6 BP 126/74 Blood Pressure Location Rt brachial Position Sitting Respiration 17 Pulse 60 Pulse Source Pulse Oximeter Temp 98.1 F Temp Source Oral Pulse Oximetry (%) 96 Oxygen Delivery Method Room Air Intake Visit Reasons: PE - see comments Intake Note: Pt is here today for PE. Software Consultant Required: No Allergies No Known Allergies Allergy (Verified 08/21/25 12:11) Medication List - Last Reconciled 08/21/25 by Dalila Foreman MD amlodipine 10 mg PO DAILY apixaban (Eliquis) 5 mg PO BID irbesartan 300 mg PO DAILY levothyroxine 50 mcg PO DAILY metoprolol succinate ER 50 mg PO DAILY rosuvastatin 20 mg PO DAILY triamterene-hydrochlorothiazid 37.5-25 mg 1 tab PO DAILY Tobacco use date assessed: 08/21/25 Fall risk assessment: No Falls in past year Last assessed Fall Risk: 08/21/25 Dental Screening Dental Screen Date: 02/26/25 HPI PE - see comments HPI Details Patient presents for physical. She felt and injured her right thumb 5 days ago. 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[facility] Medical History (Updated 08/21/25 @ 13:04 by Dalila Foreman MD) Hyperglycemia Hypothyroidism Essential hypertension Cardiomyopathy Hyperlipidemia Osteoarthritis of right knee H/O bone density study Surgical History H/O colonoscopy Family History Mother HTN (hypertension) Stroke Social History Housing: House Alcohol intake: never Patient Tobacco Use Status: Never used Tobacco e-Cigarette/Vaping Use: Never Used service: No Current occupational status: retired Cognitive needs: No Hearing needs: No Vision needs: Yes Questionnaire PHQ-9 Over the last 2 weeks, how often have you been bothered by any of the following problems? 1. Little interest or pleasure in doing things: not at all 2. Feeling down, depressed, or hopeless: not at all 3. Trouble falling or staying asleep, or sleeping too much: not at all 4. Feeling tired or having little energy: not at all 5. Poor appetite or overeating: not at all 6. Feeling bad about yourself - or that you are a failure or have let yourself or your family down: not at all 7. Trouble concentrating on things, such as reading the newspaper or watching television: not at all 8. Moving or speaking so slowly that other people could have noticed. Or the opposite - being so fidgety or restless that you have been moving around a lot more than usual: not at all 9. Thoughts that you would be better off or of hurting yourself in some way: not at all Total score: 0 Depression Screening Interpretation: Negative Depression Screening Done: Yes Source: Developed by Drs. Fred Soto, Prisca Freedman, Rufino Matos and colleagues, with an educational darius from [employer]. Thrive Questionnaire Date Thrive assessed: 02/26/25 I am a: Patient What is your living situation today?: I have a steady place to live Within the past 12 months, did the food you bought not last and you didn't have the money to get more?: Never true Within the past 12 months, did you worry whether your food would run out before you got money to buy more?: Never true Do you have trouble paying for medicines?: No Do you have trouble getting transportation to medical appointments?: No Do you have trouble paying your heating and electricity bill?: No Do you have trouble taking care of your child, family member or friend?: No Do you have trouble with day-to-day activities such as bathing, preparing meals, shopping, managing finances, etc.?: No Are you currently unemployed and looking for a job?: No Are you interested in more education?: No Please select the resources that you would like help with: None Currently or been in a relationship where the following occur: I choose not to answer THRIVE Score: 0 AUDIT C Alcohol Use Questionnaire (AUDIT-C) 1. How often do you have a drink containing alcohol?: Never 3. How often do you have six or more drinks on one occasion?: Never Total Score: 0 OLGA LIDIA-7 AMB Questionnaire OLGA LIDIA-7 Date OLGA LIDIA - 7 assessed: 02/26/25 Feeling nervous, anxious, or on edge: 0 = Not at all Not being able to stop or control worryin = Not at all Worrying too much about different things: 0 = Not at all Trouble relaxin = Not at all Being so restless that it is hard to sit still: 0 = Not at all Becoming easily annoyed or irritable: 0 = Not at all Feeling afraid as if something awful might happen: 0 = Not at all Total OLGA LIDIA-7 score (0-4 normal; 5-9 mild; 10-14 moderate; 15-21 severe): 0 Source: Developed by Drs. Fred Soto, Prisca Freedman, Rufino Matos and colleagues, with an educational darius from [employer]. Review of Systems Const All systems reviewed & are unremarkable except as noted in HPI and below Eyes Reports no additional complaints ENT Reports no additional complaints Card Reports no additional complaints Resp Reports no additional complaints GI Reports no additional complaints Reports no additional complaints Physical exam (Primary Care) Vital Signs: Last Vital Signs Temp 98.1 F 08/21/25 11:59 Pulse 60 08/21/25 11:59 Resp 17 08/21/25 11:59 BP 126/74 08/21/25 11:59 Pulse Ox 96 08/21/25 11:59 Oxygen Delivery Method Room Air 08/21/25 11:59 BMI result Body Mass Index 31.6 Tobacco/Smoking Status: Tobacco use Status Tobacco use date assessed 08/21/25 08/21/25 12:00 Patient Tobacco Use Status Never used Tobacco 08/21/25 11:59 e-Cigarette/Vaping Use Never Used 08/21/25 11:59 PHQ-9: PHQ-9 Score PHQ-9: Total score 0 08/21/25 12:28 Depression Screening Interpretation: Negative Thrive Assessment: Date of Thrive Assessment Date Thrive assessed 02/26/25 08/21/25 11:59 Currently or been in a relationship where the following occur: I choose not to answer Const General: no acute distress HENMT Head: Yes normal to inspection Face and sinus: Yes normal facial exam Neck Neck: Yes no lymphadenopathy and Yes supple Resp Effort & Inspection: normal respiratory effort Auscultation: clear to auscultation bilaterally Cardio Rhythm: regular rhythm Heart sounds: S1 normal heart sound present and S2 normal heart sound present GI Inspection: Yes normal to inspection Palpation (GI): Soft to palpation Percussion: Yes normal to percussion Auscultation: normal bowel sounds Extrem Other: There is slight soft tissue swelling and tenderness at the base of right thumb Coding Level of Care Code Est Pt Prev Care >65y(21153) Diagnoses Hand injury S69.90XA Essential hypertension I10 Other cardiomyopathy I42.8 Cardiomyopathy type: other PAF (paroxysmal atrial fibrillation) I48.0 Hyperlipidemia E78.5 Hyperglycemia R73.9 Assessment & Plan Assessment & Plan (1) Hand injury: Code(s): S69.90XA - Unspecified injury of unspecified wrist, hand and finger(s), initial encounter Category: Medical Plan: Check x-ray of right hand, supportive care discussed with the patient (2) Essential hypertension: Code(s): I10 - Essential (primary) hypertension Category: Medical Plan: Continue current medications (3) Cardiomyopathy: Comment: tachycardia induced 2020, recovered EF to 60 % on Echo 07/25, nl coronary angiogram 2020 Code(s): I42.9 - Cardiomyopathy, unspecified Category: Medical Qualifiers: Cardiomyopathy type: other Qualified Code(s): I42.8 - Other cardiomyopathies Plan: Continue current medications (4) PAF (paroxysmal atrial fibrillation): Comment: Echo 2021 nl EF, on Eliquis Code(s): I48.0 - Paroxysmal atrial fibrillation Category: Medical Plan: Continue Eliquis and metoprolol, follow-up with cardiology annually (5) Hyperlipidemia: Code(s): E78.5 - Hyperlipidemia, unspecified Category: Medical Plan: Continue statin (6) Hyperglycemia: Code(s): R73.9 - Hyperglycemia, unspecified Category: Medical Plan: A1c is 6.0, ADA diet regular exercise weight loss discussed with the patient and follow-up in 6 months with fasting labs before Orders: Orders XR wrist RT 2V Today S69.90XA - Unspecified injury of unspecified wrist, hand and finger(s), initial encounter Comprehensive [place]. Panel Fast 6 Months E03.9 - Hypothyroidism, unspecified, E 55.9 - Vitamin D deficiency, unspecified, E78.5 - Hyperlipidemia, unspecified, I10 - Essential (primary) hypertension, R73.9 - Hyperglycemia, unspecified Complete Blood Count Auto Diff 6 Months E03.9 - Hypothyroidism, unspecified, E55.9 - Vitamin D deficiency, unspecified, E78.5 - Hyperlipidemia, unspecified, I10 - Essential (primary) hypertension, R73.9 - Hyperglycemia, unspecified Hemoglobin A1c 6 Months E03.9 - Hypothyroidism, unspecified, E55.9 - Vitamin D deficiency, unspecified, E78.5 - Hyperlipidemia, unspecified, I10 - Essential (primary) hypertension, R73.9 - Hyperglycemia, unspecified Vitamin D 25-OH Total 6 Months E03.9 - Hypothyroidism, unspecified, E55.9 - Vitamin D deficiency, unspecified, E78.5 - Hyperlipidemia, unspecified, I10 - Essential (primary) hypertension, R73.9 - Hyperglycemia, unspecified Lipid Panel 6 Months E03.9 - Hypothyroidism, unspecified, E55.9 - Vitamin D deficiency, unspecified, E78.5 - Hyperlipidemia, unspecified, I10 - Essential (primary) hypertension, R73.9 - Hyperglycemia, unspecified Microalbumin, Random (w Creat) 6 Months E03.9 - Hypothyroidism, unspecified, E55.9 - Vitamin D deficiency, unspecified, E78.5 - Hyperlipidemia, unspecified, I10 - Essential (primary) hypertension, R73.9 - Hyperglycemia, unspecified TSH reflex Free T4 6 Months E03.9 - Hypothyroidism, unspecified, E55.9 - Vitamin D deficiency, unspecified, E78.5 - Hyperlipidemia, unspecified, I10 - Essential (primary) hypertension, R73.9 - Hyperglycemia, unspecified
== END 2025-08-21 13:05 | disposition home or self-care (01) ==
LOC: HO.HMCC 11:56
PROVIDERS: PCP Internal Medicine; Visit Provider Internal Medicine
DX: Z00.00 Encounter for general adult medical examination without abnormal findings (principal); S69.90XA Unspecified injury of unspecified wrist, hand and finger(s), initial encounter; I42.8 Other cardiomyopathies; I48.0 Paroxysmal atrial fibrillation; I10 Essential (primary) hypertension; E78.5 Hyperlipidemia, unspecified; R73.9 Hyperglycemia, unspecified

== ENCOUNTER → 2025-08-21 13:03 | Outpatient (BNV) | payer MEDICARE, SELFPAY | PROVIDERS: PCP Internal Medicine; Visit Provider Radiology Diagnostic Radiology | DX: M19.041 Primary osteoarthritis, right hand (principal) | CPT/HCPCS: 73130 ==